=== PATIENT | male | born 1990 | race Caucasian/White ===

== ENCOUNTER 2024-10-16 08:15 | Emergency (ER) | payer BC, SELFPAY ==
[2024-10-16 08:22] VITALS: BP 138/80; PULSE 116; RESP 20; TEMP 37.2; O2SAT 97
--- NOTE | 2024-10-16 08:22 | ED.URI ---
HPI - URI/Sore Throat General Chief Complaint: Upper Respiratory Infection Stated Complaint: Chest Congestion/Headache/Cough Time Seen by Provider: 10/16/24 08:41 Source: patient and RN notes reviewed Mode of arrival: ambulatory Limitations: no limitations History of Present Illness HPI Narrative: 43-year-old male presents with concern for cough, chest congestion, headache, postnasal drainage sweats that started on Tuesday. He reports he has been taking Advil cold and Sinus without relief. MD elicited complaint: cough Related Data Allergies Allergy/AdvReac Type Severity Reaction Status Date / Time No Known Allergies Allergy Unverified 11/25/18 10:11 Review of Systems Review of Systems: CONSTITUTIONAL: Reports malaise, sweats EYES: Denies visual changes, redness, or discharge. ENT: Reports rhinorrhea, congestion, postnasal drainage. Denies sinus pain, otalgia and sore throat. CARDIOVASCULAR: Denies chest pain, palpitations, or edema. RESPIRATORY: Reports cough. Denies dyspnea. GASTROINTESTINAL: Denies abdominal pain, nausea, vomiting, diarrhea SKIN: Denies rash or itching. MUSCULOSKELETAL: Denies myalgia. NEUROLOGIC: Reports headache. All systems reviewed & are unremarkable except as noted in HPI and below PMFSH Comments At time of signature, agree with nursing past medical, surgical, social and family history. There is no relevant family history pertinent to the presenting complaint Exam Narrative: GENERAL: Nontoxic-appearing, well-nourished, and in no acute distress. HEAD: Normocephalic EYES: PERRLA, conjunctivae clear ENT: Nares clear, turbinates edematous and erythematous, clear discharge. Mucous membranes moist. TM pearly rowe with dull light reflex bilaterally; no tragal tenderness. Oropharynx not erythematous without lesions. Tonsils not enlarged and without exudate, no drooling, no hoarseness, no trismus, uvula midline. NECK: Supple. No lymphadenopathy CHEST: Clear to auscultation, breath sounds equal. No wheezing, rhonchi, rales, or stridor. No respiratory distress, speaks in full sentences. HEART: Regular rate and rhythm. No murmur heard. SKIN: Warm, sweaty, no rash. NEURO: Alert and oriented x3. PSYCH: Normal mood and affect Course Course Emergency Course: Patient is aware of diagnosis, understands and agrees to treatment plan. Anticipatory guidance given. Patient agrees to follow-up as directed and is aware of reasons to seek care at the emergency department. Portions of this record may have been created with voice recognition software Level of Care: Express Care Visit Vital Signs Vital signs: Reviewed. MDM - URI/Sore Throat MDM Narrative Medical decision making narrative: Differential diagnosis considered: Fernandez virus, strep pharyngitis, allergic rhinitis, upper respiratory tract infection, sinusitis, rhinosinusitis, nasopharyngitis. viral pharyngitis, otitis media, otitis externa, pneumonia, bronchitis, viral cough syndrome, viral syndrome, and influenza. Exam findings show no acute concerns or changes; patient is non-toxic appearing and is in no distress. Patient is appropriate for outpatient treatment and follow-up. Lab Data Attestation: I reviewed the patient's lab results. Critical Care Time Critical Care Time Critical Care Time: No Discharge Plan Discharge Clinical Impression: Upper respiratory infection Patient Disposition: Home, Self-Care Condition: Stable Instructions: Antibiotic Form Additional Instructions: Your COVID and flu tests are negative -Take strict precautions to prevent the spread of your virus. Be diligent about covering your cough (even when you are alone) and washing your hands frequently. -You may contagious until you have been symptom and/or fever free for 24 hours without fever reducing medicine -Alternate Ibuprofen and Tylenol for pain and fever relief (per package directions) -Some Cough medicines may make you drowsy, do not take it if you have to make important decisions, drive, or work. -Drink plenty of fluid - drink fluid with electrolytes such as Gatorade or other oral re-hydration solution. Avoid caffeine, which can make dehydration worse. -Get plenty of rest to help your body heal. -Use a cool mist humidifier for chest and nasal congestion. -Eat RAW honey or use cough drops to ease throat discomfort -Do not smoke or expose children to secondhand smoke -Wash your hands frequently. -Please follow-up with your primary care doctor in the next 1-2 days if your symptoms do not improve. -If you have any worsening of symptoms or any other concerns please go to the ED immediately. -Please take medications as prescribed and continue taking your home medications as usual. Patient Language: Nepalese Prescriptions: New dextromethorphan-guaifenesin [Mucinex DM] 60-1,200 mg tablet extended release 12 hr 1 tablet PO Q12H Qty: 12 0RF Follow-up/Referrals: PHYSICIAN,WELFARE PROJECT MANAGER [Primary Care Provider] - Stand Alone Forms: Work/School Release IP Time of Disposition: 08:48
--- OUTSIDE RECORDS SUMMARY | 2024-10-16 08:41 | XMS_ITS | Data Portability ---
Author Organization [place] [facility] [facility] Address [address] [facility] [place] [address] Assessment Encounter Date Assessment Date Assessment LastModified by Organization Details LastModified Time 05/13/2023 05/13/2023 Pt was switched to Dovato today he will have labs completed in 6mos in [place] and will have a phone visit. Discussed s e of Dovato his is on PREP and is compliant. Genotype reviewed from 2019 Not available 05/13/2023 17:37:00 Plan of Treatment Reminders Order Date Submit Date Provider Last Modified By Organization Details Last Modified Time Details Appointments ANY 30 2024 01:30P M Nathaniel Franco NP Not available Not available Not available Lab HIV-1 RNA, quantitat quincy, PCR, serum or plasma 2022 023 [place] [facility], [facility] [facility] [address], [address], [place], [address], 06/10/2023 12:12:58 cd4 T-cells, blood 2022 023 [facility], [facility], [address], [place], [address], 05/27/2023 10:08:19 RPR (rapid plasma reagin), serum 2022 023 [facility], [facility], [address], [place], [address], 05/27/2023 10:08:19 chlamydia trachomat is + neisseria gonorrhoe ae + trichomon as vaginalis DNA panel, KELLY+probe , unspecifi ed specimen 2022 023 [facility], [address], [address], [place], [address], 05/27/2023 10:07:47 CMP, serum or plasma 2022 023 [facility], [address], [address], [place], [address], 05/27/2023 10:08:20 HIV 1 RNA reverse transcrip tase and protease and integrase gene mutations detected, sequencin g, plasma 2022 023 [facility], [address] [facility] [address], [place], [address], 06/10/2023 12:12:59 unlisted lab - genosure archive(R ) 2022 023 [facility], [address] [facility] [address], [place], [address], 06/10/2023 12:12:59 HIV-1 RNA, quantitat quincy, PCR, serum or plasma 2022 023 [facility], [facility] [address], [address], [place], [place], [address], 08/30/2023 09:08:27 cd4 T-cells, blood 2022 023 [facility] FAW[facility], [facility], [address], [place], [address], 08/30/2023 22:06:57 RPR (rapid plasma reagin), serum 2022 023 [facility] FAW[facility], [facility], [address], [place], [address], 08/30/2023 22:06:58 chlamydia trachomat is + neisseria gonorrhoe ae + trichomon as vaginalis DNA panel, KELLY+probe , unspecifi ed specimen 2022 023 [facility], [address], [address], [place], [address], 08/30/2023 22:06:56 CMP, serum or plasma 2022 023 [facility], [address] [place], [place] [address]rad[address], [address], [place], [address], 08/30/2023 22:06:57 HIV 1 RNA reverse transcrip tase and protease and integrase gene mutations detected, sequencin g, plasma 2022 023 [facility], [address] [place] [address], [address], 08/30/2023 09:08:27 CMP, serum or plasma 2023 024 [facility], [address] [place], [place] [address], [address], [place], [address], 11/29/2023 19:08:52 lipid panel, serum 2023 024 [facility] CELEST[facility], [address] [place], [place] [address], [address], [place], [address], 11/29/2023 19:08:51 urinalysi s, complete 2023 024 [facility] CELESTIN, [address] [place], [place] [address], [address], [place], [address], 11/29/2023 19:08:54 RPR (rapid plasma reagin), serum 2023 024 [facility] CELEST[facility], [address] [place], [place] [address], [address], [place], [address], 11/29/2023 19:08:54 Mycobacte rium tuberculo sis stimulate d gamma interfero n, qual, blood 2023 024 [facility], [address] [place], [place] [address], [address], [place], [address], 11/29/2023 19:08:50 chlamydia trachomat is + neisseria gonorrhoe ae + trichomon as vaginalis DNA panel, KELLY+probe , unspecifi ed specimen 2023 024 [facility], [address] [place], [place] [address], [address], [place], [address], 11/29/2023 19:08:51 CMP, serum or plasma 2023 024 [facility], [address] [place], [place] [address], [address], [place], [address], 02/02/2024 14:41:21 HIV-1 RNA, quantitat quincy, PCR, serum or plasma 2023 024 [facility], [address] [place], [place] [address], [address], [place], [address], 11/26/2023 21:08:19 cd4 T-cells, blood 2023 024 [facility], [address] [place], [place] [address], [address], [place], [address], 11/29/2023 19:08:53 drug screen, urine 2023 024 [facility]ALD[facility] FAWAD, [address] [place], [place] [address], [address], [place], [address], 11/29/2023 19:08:53 Hepatitis C IgG Ab, qual, serum 2023 024 [facility], [address] [place], [place] [address], [address], [place], [address], 11/29/2023 19:08:50 HIV-1 RNA, quantitat quincy, PCR, serum or plasma 2023 024 [facility], [address] [place], [place] [address], [address], [place], [address], 05/12/2024 21:07:17 cd4 T-cells, blood 2023 024 [facility], [address] [place], [place] [address], [address], [place], [address], 05/14/2024 21:07:40 RPR (rapid plasma reagin), serum 2023 024 [facility], [address] [place] [address], [address], [place], [address], 05/14/2024 21:07:40 chlamydia trachomat is + neisseria gonorrhoe ae + trichomon as vaginalis rRNA panel, KELLY+probe 2023 024 [facility], [address] [place], [place] [address], [address], [place], [address], 05/14/2024 21:07:39 CMP, serum or plasma 2023 024 [facility], [address] [place] [address], [address], [place], [address], 05/14/2024 21:07:39 Referral None recorded. Procedures None recorded. Surgeries None recorded. Imaging None recorded. Medication Orders Dovato 50 mg-300 mg tablet 2022 023 [place] [facility], [address], [place], [address], 05/13/2023 17:36:40 Dovato 50 mg-300 mg tablet 2022 023 [place] [facility], [facility] , [place], [address], 08/26/2023 12:04:29 Dovato 50 mg-300 mg tablet 2023 024 [place] [facility], [facility] , [place], [address], 11/25/2023 10:56:50 Dovato 50 mg-300 mg tablet 2023 024 [facility] [facility], [facility] [facility], [place], [address], 05/11/2024 12:45:06 Patient TargetsNo targets recorded. Patient Instructions Encounter Date Encounter Id Patient Instructions Last Modified By Organization Details Last Modified Time 05/13/2023 [id number] A healthy lifestyle: care instructions Not available 05/13/2023 17:35:28 08/26/2023 [id number] A healthy lifestyle: care instructions Not available 08/26/2023 13:36:58 11/25/2023 [id number] A healthy lifestyle: care instructions Not available 11/25/2023 13:14:10 05/11/2024 [id number] A healthy lifestyle: care instructions Not available 05/11/2024 14:29:59 Reason for Referral None Reported. Results Created Date Observation Date Name Description Value Unit Range Abnormal Flag Note LastModifiedBy Organization Detail LastModifiedTime 01/08/2001/08/2023 RPR, RFX QN RPR/C ONFIR M TP RPR Reacti ve nonrea ctive abnormal Not Available [facility] ([facility]) [address] [facility], [place], [address], 01/10/2023 16:37:00 01/08/20 23 01/08/2023 RPR QN+TP ABS RPR, quant. 1:32 nonrea <1:1 above high normal Not Available [facility] ([facility]) [address] [facility] [place], [address], 01/10/2023 16:37:01 01/08/20 23 01/10/2023 RPR QN+TP ABS treponema pallidum antibodies Reacti ve nonrea ctive abnormal Not Available [facility] ([facility]) [address] [facility] [place], [address], 01/10/2023 16:37:01 05/13/20 23 05/14/2023 COMP. METAB OLIC PANEL (14) glucose 103 mg/dL 70-99 above high normal Not Available [facility] ([facility]) [address] [facility] [place], [address], 05/16/2023 14:10:11 05/13/20 23 05/14/2023 COMP. METAB OLIC PANEL (14) BUN 16 mg/dL 6-20 Not Available [facility] ([facility]) [address] [facility] [place], [address], 05/16/2023 14:10:11 05/13/20 23 05/14/2023 COMP. METAB OLIC PANEL (14) creatinine 1.23 mg/dL 0.76-1 .27 Not Available [facility] ([facility]) [address] [facility] [place], [address], 05/16/2023 14:10:11 05/13/20 23 05/14/2023 COMP. METAB OLIC PANEL (14) eGFR 81 mL/mi n/1.7 3 >59 Not Available [facility] ([facility]) [address] [facility] [place], [address], 05/16/2023 14:10:11 05/13/20 23 05/14/2023 COMP. METAB OLIC PANEL (14) BUN/creatini ne ratio 13 9-20 Not Available [facility] ([facility]) [address] [place], [address], 05/16/2023 14:10:11 05/13/20 23 05/14/2023 COMP. METAB OLIC PANEL (14) sodium 139 mmol/ L 134-14 4 Not Available [facility] ([facility]) [address] [facility], [place], [address], 05/16/2023 14:10:11 05/13/20 23 05/14/2023 COMP. METAB OLIC PANEL (14) potassium 4.4 mmol/ L 3.5-5. 2 Not Available [facility] ([facility]) [address] [facility], [place], [address], 05/16/2023 14:10:11 05/13/20 23 05/14/2023 COMP. METAB OLIC PANEL (14) chloride 103 mmol/ L 96-106 Not Available [facility] ([facility]) [address] [facility], [place], [address], 05/16/2023 14:10:11 05/13/20 23 05/14/2023 COMP. METAB OLIC PANEL (14) carbon dioxide, total 23 mmol/ L 20-29 Not Available [facility] ([facility]) [address] [facility], [place], [address], 05/16/2023 14:10:11 05/13/20 23 05/14/2023 COMP. METAB OLIC PANEL (14) calcium 9.5 mg/dL 8.7-10 .2 Not Available [facility] ([facility]) [address] [facility], [place], [address], 05/16/2023 14:10:11 05/13/20 23 05/14/2023 COMP. METAB OLIC PANEL (14) protein, total 7.1 g/dL 6.0-8. 5 Not Available [facility] ([facility]) [address] [facility], [place], [address], 05/16/2023 14:10:11 05/13/20 23 05/14/2023 COMP. METAB OLIC PANEL (14) albumin 4.6 g/dL 4.3-5. 2 Not Available [facility] ([facility]) [address] [place], [address], 05/16/2023 14:10:11 05/13/20 23 05/14/2023 COMP. METAB OLIC PANEL (14) globulin, total 2.5 g/dL 1.5-4. 5 Not Available [facility] ([facility]) [address] [place], [address], 05/16/2023 14:10:11 05/13/20 23 05/14/2023 COMP. METAB OLIC PANEL (14) A/G ratio 1.8 1.2-2. 2 Not Available [facility] ([facility]) [address] [place], [address], 05/16/2023 14:10:11 05/13/20 23 05/14/2023 COMP. METAB OLIC PANEL (14) bilirubin, total 0.2 mg/dL 0.0-1. 2 Not Available [facility] ([facility]) [address] [place], [address], 05/16/2023 14:10:11 05/13/20 23 05/14/2023 COMP. METAB OLIC PANEL (14) alkaline phosphatase 50 IU/L 44-121 Not Available [facility] ([facility]) [address] [place], [address], 05/16/2023 14:10:11 05/13/20 23 05/14/2023 COMP. METAB OLIC PANEL (14) AST (SGOT) 21 IU/L 0-40 Not Available [facility] ([facility]) [address] [place], [address], 05/16/2023 14:10:11 05/13/20 23 05/14/2023 COMP. METAB OLIC PANEL (14) ALT (SGPT) 21 IU/L 0-44 Not Available [facility] ([facility]) [address] [facility], [place], [address], 05/16/2023 14:10:11 05/13/2005/13/2023 HELPE R T-LYM PH-CD 4 WBC 5.8 x10e3 /uL 3.4-10 .8 Not Available [facility] ([facility]) [address] [facility], [place], [address], 05/16/2023 14:10:12 05/13/2005/13/2023 HELPE R T-LYM PH-CD 4 RBC 4.67 x10e6 /uL 4.14-5 .80 Not Available [facility] ([facility]) [address] [facility], [place], [address], 05/16/2023 14:10:12 05/13/2005/13/2023 HELPE R T-LYM PH-CD 4 hemoglobin 14.1 g/dL 13.0-1 7.7 Not Available [facility] ([facility]) [address] [facility], [place], [address], 05/16/2023 14:10:12 05/13/2005/13/2023 HELPE R T-LYM PH-CD 4 hematocrit 41.7 % 37.5-5 1.0 Not Available [facility] ([facility]) [address] [facility], [place], [address], 05/16/2023 14:10:12 05/13/2005/13/2023 HELPE R T-LYM PH-CD 4 MCV 89 fL 79-97 Not Available [facility] ([facility]) [address] [facility], [place], [address], 05/16/2023 14:10:12 05/13/20 23 05/13/2023 HELPE R T-LYM PH-CD 4 MCH 30.2 pg 26.6-3 3.0 Not Available [facility] ([facility]) [address], [place], [address], 05/16/2023 14:10:12 05/13/20 23 05/13/2023 HELPE R T-LYM PH-CD 4 MCHC 33.8 g/dL 31.5-3 5.7 Not Available [facility] ([facility]) [address] [facility], [place], [address], 05/16/2023 14:10:12 05/13/20 23 05/13/2023 HELPE R T-LYM PH-CD 4 RDW 12.4 % 11.6-1 5.4 Not Available [facility] ([facility]) [address] [facility], [place], [address], 05/16/2023 14:10:12 05/13/20 23 05/13/2023 HELPE R T-LYM PH-CD 4 platelets 261 x10e3 /uL 150-45 0 Not Available [facility] ([facility]) [address] [facility], [place], [address], 05/16/2023 14:10:12 05/13/2005/13/2023 HELPE R T-LYM PH-CD 4 neutrophils 58 % notest ab. Not Available [facility] ([facility]) [address] [facility], [place], [address], 05/16/2023 14:10:12 05/13/20 23 05/13/2023 HELPE R T-LYM PH-CD 4 lymphs 25 % notest ab. Not Available [facility] ([facility]) [address] [facility], [place], [address], 05/16/2023 14:10:12 05/13/20 23 05/13/2023 HELPE R T-LYM PH-CD 4 monocytes 10 % notest ab. Not Available [facility] ([facility]) [address] [facility], [place], [address], 05/16/2023 14:10:12 05/13/20 23 05/13/2023 HELPE R T-LYM PH-CD 4 eos 5 % notest ab. Not Available [facility] ([facility]) [address] [facility], [place], [address], 05/16/2023 14:10:12 05/13/20 23 05/13/2023 HELPE R T-LYM PH-CD 4 basos 1 % notest ab. Not Available [facility] ([facility]) [address] [facility], [place], [address], 05/16/2023 14:10:12 05/13/2005/13/2023 HELPE R T-LYM PH-CD 4 neutrophils (absolute) 3.4 x10e3 /uL 1.4-7. 0 Not Available [facility] ([facility]) [address] [place], [address], 05/16/2023 14:10:12 05/13/2005/13/2023 HELPE R T-LYM PH-CD 4 lymphs (absolute) 1.4 x10e3 /uL 0.7-3. 1 Not Available [facility] ([facility]) [address] [place], [address], 05/16/2023 14:10:12 05/13/20 23 05/13/2023 HELPE R T-LYM PH-CD 4 monocytes(ab solute) 0.6 x10e3 /uL 0.1-0. 9 Not Available [facility] ([facility]) [address] [facility], [place], [address], 05/16/2023 14:10:12 05/13/2005/13/2023 HELPE R T-LYM PH-CD 4 eos (absolute) 0.3 x10e3 /uL 0.0-0. 4 Not Available [facility] ([facility]) [address] [place], [address], 05/16/2023 14:10:12 05/13/20 23 05/13/2023 HELPE R T-LYM PH-CD 4 baso (absolute) 0.1 x10e3 /uL 0.0-0. 2 Not Available [facility] ([facility]) [address] [facility], [place], [address], 05/16/2023 14:10:12 05/13/20 23 05/13/2023 HELPE R T-LYM PH-CD 4 immature granulocytes 1 % notest ab. Not Available [facility] ([facility]) [address] [facility] [place], [address], 05/16/2023 14:10:12 05/13/20 23 05/13/2023 HELPE R T-LYM PH-CD 4 immature grans (abs) 0.0 x10e3 /uL 0.0-0. 1 Not Available [facility] ([facility]) [address] [facility], [place], [address], 05/16/2023 14:10:12 05/13/2005/16/2023 HELPE R T-LYM PH-CD 4 absolute cd 4 helper 624 /uL 359-15 19 Not Available [facility] ([facility]) [address] [facility] [place], [address], 05/16/2023 14:10:12 05/13/20 23 05/16/2023 HELPE R T-LYM PH-CD 4 % cd 4 pos. lymph. 44.6 % 30.8-5 8.5 Not Available [facility] ([facility]) [address] [facility] [place], [address], 05/16/2023 14:10:12 05/13/20 23 05/14/2023 RPR, RFX QN RPR/C ONFIR M TP RPR Reacti ve nonrea ctive abnormal Not Available [facility] ([facility]) [address] [facility] [place], [address], 05/16/2023 14:10:13 05/13/20 23 05/14/2023 RNA, REAL TIME PCR (NON- GRAPH ) HIV-1 RNA by PCR <20 copie s/mL HIV-1 RNA detec jeannine The repor table range for this assay is 20 to 10,00 0,000 copie s HIV-1 RNA/m L. Not Available [facility] ([facility]) [address] [facility], [place], [address], 06/10/2023 12:12:58 05/13/20 23 05/14/2023 RNA, REAL TIME PCR (NON- GRAPH ) log10 HIV-1 RNA TNP log10 copy/ mL Unabl e to calcu late resul t since non-n umeri c resul t obtai lyudmila for compo nent test. Not Available [facility] ([facility]) [address] [facility], [place], [address], 06/10/2023 12:12:58 05/13/2005/16/2023 GENOS URE PRIME (R) pdf Not applic able Not Available [facility] ([facility]) [address] [facility], [place], [address], 06/10/2023 12:12:59 05/13/2005/16/2023 GENOS URE PRIME (R) HIV genosure prime(R) TNP Test not perfo rmed. We are unabl e to deter mine the genot ype and/o r pheno type of this sampl e due to insuf ficie nt viral copy numbe r. Sampl es with low viral loads will often fail PCR ampli ficat ion. Not Available [facility] ([facility]) [address] [facility], [place], [address], 06/10/2023 12:12:59 05/13/2005/16/2023 GENOS URE PRIME (R) HIV genosure prime(R) Commen t Seque ncing not perfo rmed due to low viral load Not Available [facility] ([facility]) [address] [place], [address], 06/10/2023 12:12:59 05/13/20 23 06/10/2023 GENOS URE ARCHI VE(R) pdf . Not Available [facility] ([facility]) [address] [facility], [place], [address], 06/10/2023 12:12:59 05/13/20 23 06/10/2023 GENOS URE ARCHI VE(R) HIV genosure archive Commen t Carlton gene ampli con adequ ate for seque ncing Not Available [facility] ([facility]) [address] [facility], [place], [address], 06/10/2023 12:12:59 05/13/20 23 06/10/2023 GENOS URE ARCHI VE(R) HIV genosure archive Commen t The HIV-1 GenoS ure Archi ve(R) for this speci men has been compl eted. HIV-1 Subty pe: B Drug Genot ypic Gener ic Name Brand Name Asses sment Comme nts ----- ----- ----- ----- ----- - ----- ----- ----- --- NRTI [place] vir Ziage n Sensi tive Dede* : V118I Didan osine Videx Sensi tive Dede* : None Emtri citab ine Emtri va Sensi tive Dede* : V118I Lamiv udine Epivi r Sensi tive Dede* : V118I Stavu dine Zerit Sensi tive Dede* : V118I Tenof ovir Virea d Sensi tive Dede* : None Zidov udine Retro vir Sensi tive Dede* : V118I NNRTI Dorav irine Pifel tro Resis tant Dede* : I135T , Y188L , V245E Efavi nelda Susti va Resis tant Dede* : Y188L Etrav irine Intel ence Sensi tive Dede* : Y188L Nevir apine Viram une Resis tant Dede* : Y188L Rilpi virin e Edura nt Resis tant Dede* : Y188L INI Bicte gravi r Bicte gravi r Sensi tive Dede* : None Dolut egrav ir Tivic ay Sensi tive Dede* : None Elvit egrav ir Vitek ta Sensi tive Dede* : None Ralte gravi r Isent ress Sensi tive Dede* : None PI Ataza navir /r Reyat az / r Sensi tive Dede* : E35D, A71V Darun avir/ r Prezi sta / r Sensi tive Dede* : None Fosam prena vir/r Lexiv a / r Sensi tive Dede* : E35D Indin avir/ r Crixi van / r Sensi tive Dede* : A71V Lopin avir Kalet ra Sensi tive Dede* : A71V Nelfi navir Virac ept Sensi tive Dede* : E35D, A71V Riton avir Norvi r Sensi tive Dede* : E35D, A71V Saqui navir /r Invir ase / r Sensi tive Dede* : E35D, A71V Tipra navir /r Aptiv us / r Sensi tive Dede* : E35D, L63A/ T, A71V *Dede = Resis tance Assoc iated Mutat ions obser joelle [employer] Obser joelle: RT: E6K, K20R, I50I/ V, S68S/ N, Q102K , V118I , K122E , I135T , C162A , R172K , Y188L , T200A , R211K , F214L , V245E , S251I , R284K , E297K , I329L , G333E , K358R , T377Q , K390R , A400S IN: E11D, A23V, V31I, K42R, V72I, V88V/ I, K111T , V113I , S119T , T125A , V126L , V151I , V201I , V234L , S255S /R RI: E35D, P39Q, R41K, L63A/ T, A71V, I72V, I93L Asses sment of drug susce ptibi lity is based upon detec jeannine mutat ions and inter prete d using an advan samantha propr ietar y algor ithm (vers ion 18). Not Available [facility] ([facility]) [address] [facility], [place], [address], 06/10/2023 12:12:59 05/13/2006/10/2023 GENOS URE ARCHI VE(R) HIV genosure archive interp Commen t Inter preta tion algor ithms for riton avir- boost ed prote ase inhib itors appro priat e for the follo wing dosag es: AMP/r 600mg /100m g BID; ATV/r 300mg /100m g QD; IDV/r 800mg /200m g BID; LPV/r 400mg /100m g BID; SQV/r 1000m g/100 mg BID; TPV/r 500mg /200m g BID; and DRV/r 600mg /100m g BID. Mixtu res are indic ated by amino acids separ ated by a slash . For more infor aurelia lewis on inter preti ng this repor t, pleas e visit [employer] or call [facility] ce at [phone] betwe en the hours of 6:30a m to 5:00p m PT Monda y throu gh Marli y. GenoS ure Archi ve is a DNA seque ncing assay that uses next- gener ation seque ncing to eva ze the prote ase (navarrete o acids 1-99) , rever se trans cript ase (navarrete o acids 1-400 ) and integ rase (navarrete o acids 1-288 ) codin g regio ns deriv ed from HIV-1 cell assoc iated DNA. Subty pe is deter mined using the prote ase and rever se trans cript ase seque nce infor aurelia n. This test was devel oped and its perfo rmanc e braulio cteri stics deter mined by [employer]. It has not been clear ed or appro joelle by the Food and Drug Admin istra tion. [employer] can[employer] is a subsi diary of [employer], using the brand [employer] r[employer]. The resul ts shoul d not be used as the sole crite kristin for patie nt manag ement . This docum ent conta ins priva te and confi denti al healt h infor matio n prote cted by state and pilo al law. If you have recei joelle this docum ent in error , pleas e call [phone] . Not Available [facility] ([facility]) [address] [place], [address], 06/10/2023 12:12:59 05/13/2005/14/2023 RPR QN+TP ABS RPR, quant. 1:32 titer nonrea <1:1 above high normal Not Available [facility] ([facility]) [address] [place], [address], 05/16/2023 14:10:14 05/13/2005/16/2023 RPR QN+TP ABS treponema pallidum antibodies Reacti ve nonrea ctive abnormal Not Available [facility] ([facility]) [address] [place], [address], 05/16/2023 14:10:14 05/13/20 23 05/13/2023 UNABL E TO VOID unable to void Commen t Patie nt unabl e to void. Urine to be colle cted at a later date. Not Available [facility] ([facility]) [address] [place], [address], 05/16/2023 14:10:13 06/22/20 23 06/23/2023 COMP. METAB OLIC PANEL (14) glucose 97 mg/dL 70-99 Not Available [facility] ([facility]) [address] [place], [address], 06/23/2023 09:22:54 06/22/20 23 06/23/2023 COMP. METAB OLIC PANEL (14) BUN 19 mg/dL 6-20 Not Available [facility] ([facility]) [address] [facility] [place], [address], 06/23/2023 09:22:54 06/22/20 23 06/23/2023 COMP. METAB OLIC PANEL (14) creatinine 1.67 mg/dL 0.76-1 .27 above high normal Not Available [facility] ([facility]) [address] [facility] [place], [address], 06/23/2023 09:22:54 06/22/20 23 06/23/2023 COMP. METAB OLIC PANEL (14) eGFR 56 mL/mi n/1.7 3 >59 below low normal Not Available [facility] ([facility]) [address] [facility] [place], [address], 06/23/2023 09:22:54 06/22/20 23 06/23/2023 COMP. METAB OLIC PANEL (14) BUN/creatini ne ratio 11 9-20 Not Available [facility] ([facility]) [address] [facility] [place], [address], 06/23/2023 09:22:54 06/22/20 23 06/23/2023 COMP. METAB OLIC PANEL (14) sodium 140 mmol/ L 134-14 4 Not Available [facility] ([facility]) [address] [facility] [place], [address], 06/23/2023 09:22:54 06/22/20 23 06/23/2023 COMP. METAB OLIC PANEL (14) potassium 3.9 mmol/ L 3.5-5. 2 Not Available [facility] ([facility]) [address] [facility] [place], [address], 06/23/2023 09:22:54 06/22/20 23 06/23/2023 COMP. METAB OLIC PANEL (14) chloride 100 mmol/ L 96-106 Not Available [facility] ([facility]) [address] [facility] [place], [address], 06/23/2023 09:22:54 06/22/20 23 06/23/2023 COMP. METAB OLIC PANEL (14) carbon dioxide, total 21 mmol/ L 20-29 Not Available [facility] ([facility]) [address] [facility] [place], [address], 06/23/2023 09:22:54 06/22/2006/23/2023 COMP. METAB OLIC PANEL (14) calcium 9.8 mg/dL 8.7-10 .2 Not Available [facility] ([facility]) [address] [facility] [place], [address], 06/23/2023 09:22:54 06/22/2006/23/2023 COMP. METAB OLIC PANEL (14) protein, total 7.7 g/dL 6.0-8. 5 Not Available [facility] ([facility]) [address] [facility] [place], [address], 06/23/2023 09:22:54 06/22/2006/23/2023 COMP. METAB OLIC PANEL (14) albumin 5.4 g/dL 4.3-5. 2 above high normal Not Available [facility] ([facility]) [address] [facility] [place], [address], 06/23/2023 09:22:54 06/22/2006/23/2023 COMP. METAB OLIC PANEL (14) globulin, total 2.3 g/dL 1.5-4. 5 Not Available [facility] ([facility]) [address] [facility] [place], [address], 06/23/2023 09:22:54 06/22/2006/23/2023 COMP. METAB OLIC PANEL (14) A/G ratio 2.3 1.2-2. 2 above high normal Not Available [facility] ([facility]) [address] [place], [address], 06/23/2023 09:22:54 06/22/20 23 06/23/2023 COMP. METAB OLIC PANEL (14) bilirubin, total 0.8 mg/dL 0.0-1. 2 Not Available [facility] ([facility]) [address] [place], [address], 06/23/2023 09:22:54 06/22/2006/23/2023 COMP. METAB OLIC PANEL (14) alkaline phosphatase 57 IU/L 44-121 Not Available [facility] ([facility]) [address] [place], [address], 06/23/2023 09:22:54 06/22/20 23 06/23/2023 COMP. METAB OLIC PANEL (14) AST (SGOT) 31 IU/L 0-40 Not Available [facility] ([facility]) [address] [place], [address], 06/23/2023 09:22:54 06/22/20 23 06/23/2023 COMP. METAB OLIC PANEL (14) ALT (SGPT) 19 IU/L 0-44 Not Available [facility] ([facility]) [address] [place], [address], 06/23/2023 09:22:54 06/22/20 23 06/23/2023 RNA, REAL TIME PCR (NON- GRAPH ) HIV-1 RNA by PCR <20 copie s/mL HIV-1 RNA not detec jeannine The repor table range for this assay is 20 to 10,00 0,000 copie s HIV-1 RNA/m L. Not Available [facility] ([facility]) [address] [place], [address], 06/24/2023 06:15:24 06/22/2006/23/2023 RNA, REAL TIME PCR (NON- GRAPH ) log10 HIV-1 RNA TNP log10 copy/ mL Unabl e to calcu late resul t since non-n umeri c resul t obtai lyudmila for compo nent test. Not Available [facility] ([facility]) [address] [facility] [place], [address], 06/24/2023 06:15:24 06/22/2006/24/2023 CT, NG, TRICH VAG BY KELLY chlamydia by KELLY Negati ve negati ve Not Available [facility] ([facility]) [address] [place], [address], 06/24/2023 07:12:53 06/22/2006/24/2023 CT, NG, TRICH VAG BY KELLY gonococcus by KELLY Negati ve negati ve Not Available [facility] ([facility]) [address] [place], [address], 06/24/2023 07:12:53 06/22/2006/24/2023 CT, NG, TRICH VAG BY KELLY trich vag by KELLY Negati ve negati ve Not Available [facility] ([facility]) [address] [place], [address], 06/24/2023 07:12:53 06/22/2006/23/2023 HELPE R T-LYM PH-CD 4 absolute cd 4 helper 864 /uL 359-15 19 Not Available [facility] ([facility]) [address] [place], [address], 06/24/2023 07:12:54 06/22/2006/23/2023 HELPE R T-LYM PH-CD 4 % cd 4 pos. lymph. 43.2 % 30.8-5 8.5 Not Available [facility] ([facility]) [address] [place], [address], 06/24/2023 07:12:54 06/22/2006/23/2023 HELPE R T-LYM PH-CD 4 WBC 8.7 x10e3 /uL 3.4-10 .8 Not Available [facility] ([facility]) [address] [facility] [place], [address], 06/24/2023 07:12:54 06/22/2006/23/2023 HELPE R T-LYM PH-CD 4 RBC 4.64 x10e6 /uL 4.14-5 .80 Not Available [facility] ([facility]) [address] [facility] [place], [address], 06/24/2023 07:12:54 06/22/2006/23/2023 HELPE R T-LYM PH-CD 4 hemoglobin 14.4 g/dL 13.0-1 7.7 Not Available [facility] ([facility]) [address] [facility] [place], [address], 06/24/2023 07:12:54 06/22/2006/23/2023 HELPE R T-LYM PH-CD 4 hematocrit 41.0 % 37.5-5 1.0 Not Available [facility] ([facility]) [address] [facility] [place], [address], 06/24/2023 07:12:54 06/22/2006/23/2023 HELPE R T-LYM PH-CD 4 MCV 88 fL 79-97 Not Available [facility] ([facility]) [address] [facility] [place], [address], 06/24/2023 07:12:54 06/22/2006/23/2023 HELPE R T-LYM PH-CD 4 MCH 31.0 pg 26.6-3 3.0 Not Available [facility] ([facility]) [address] [facility] [place], [address], 06/24/2023 07:12:54 06/22/2006/23/2023 HELPE R T-LYM PH-CD 4 MCHC 35.1 g/dL 31.5-3 5.7 Not Available [facility] ([facility]) [address] [facility] [place], [address], 06/24/2023 07:12:54 06/22/2006/23/2023 HELPE R T-LYM PH-CD 4 RDW 14.0 % 11.6-1 5.4 Not Available [facility] ([facility]) [address] [facility] [place], [address], 06/24/2023 07:12:54 06/22/2006/23/2023 HELPE R T-LYM PH-CD 4 platelets 281 x10e3 /uL 150-45 0 Not Available [facility] ([facility]) [address] [facility] [place], [address], 06/24/2023 07:12:54 06/22/2006/23/2023 HELPE R T-LYM PH-CD 4 neutrophils 68 % notest ab. Not Available [facility] ([facility]) [address] [facility] [place], [address], 06/24/2023 07:12:54 06/22/2006/23/2023 HELPE R T-LYM PH-CD 4 lymphs 22 % notest ab. Not Available [facility] ([facility]) [address] [facility] [place], [address], 06/24/2023 07:12:54 06/22/2006/23/2023 HELPE R T-LYM PH-CD 4 monocytes 8 % notest ab. Not Available [facility] ([facility]) [address] [facility] [place], [address], 06/24/2023 07:12:54 06/22/2006/23/2023 HELPE R T-LYM PH-CD 4 eos 1 % notest ab. Not Available [facility] ([facility]) [address] [facility] [place], [address], 06/24/2023 07:12:54 06/22/2006/23/2023 HELPE R T-LYM PH-CD 4 basos 1 % notest ab. Not Available [facility] ([facility]) [address] [facility] [place], [address], 06/24/2023 07:12:54 06/22/2006/23/2023 HELPE R T-LYM PH-CD 4 neutrophils (absolute) 5.9 x10e3 /uL 1.4-7. 0 Not Available [facility] ([facility]) [address] [facility] [place], [address], 06/24/2023 07:12:54 06/22/2006/23/2023 HELPE R T-LYM PH-CD 4 lymphs (absolute) 2.0 x10e3 /uL 0.7-3. 1 Not Available [facility] ([facility]) [address] [facility] [place], [address], 06/24/2023 07:12:54 06/22/20 23 06/23/2023 HELPE R T-LYM PH-CD 4 monocytes(ab solute) 0.7 x10e3 /uL 0.1-0. 9 Not Available [facility] ([facility]) [address] [facility] [place], [address], 06/24/2023 07:12:54 06/22/20 23 06/23/2023 HELPE R T-LYM PH-CD 4 eos (absolute) 0.1 x10e3 /uL 0.0-0. 4 Not Available [facility] ([facility]) [address] [facility] [place], [address], 06/24/2023 07:12:54 06/22/20 23 06/23/2023 HELPE R T-LYM PH-CD 4 baso (absolute) 0.1 x10e3 /uL 0.0-0. 2 Not Available [facility] ([facility]) [address] [facility] [place], [address], 06/24/2023 07:12:54 06/22/2006/23/2023 HELPE R T-LYM PH-CD 4 immature granulocytes 0 % notest ab. Not Available [facility] ([facility]) [address] [facility] [place], [address], 06/24/2023 07:12:54 06/22/2006/23/2023 HELPE R T-LYM PH-CD 4 immature grans (abs) 0.0 x10e3 /uL 0.0-0. 1 Not Available [facility] ([facility]) [address] [facility], [place], [address], 06/24/2023 07:12:54 06/22/2006/23/2023 RPR, RFX QN RPR/C ONFIR M TP RPR Reacti ve nonrea ctive abnormal Not Available [facility] ([facility]) [address] [facility] [place], [address], 06/24/2023 07:12:55 06/22/2006/23/2023 RPR QN+TP ABS RPR, quant. 1:32 titer nonrea <1:1 above high normal Not Available [facility] ([facility]) [address] [facility] [place], [address], 06/24/2023 07:12:55 06/22/2006/23/2023 RPR QN+TP ABS treponema pallidum antibodies Reacti ve nonrea ctive abnormal Not Available [facility] ([facility]) [address] [facility] [place], [address], 06/24/2023 07:12:55 08/26/20 23 08/27/2023 RNA, REAL TIME PCR (NON- GRAPH ) HIV-1 RNA by PCR <20 copie s/mL HIV-1 RNA not detec jeannine The repor table range for this assay is 20 to 10,00 0,000 copie s HIV-1 RNA/m L. Not Available [facility] ([facility]) [address] [facility], [place], [address], 08/30/2023 09:08:27 08/26/20 23 08/27/2023 RNA, REAL TIME PCR (NON- GRAPH ) log10 HIV-1 RNA TNP log10 copy/ mL Unabl e to calcu late resul t since non-n umeri c resul t obtai lyudmila for compo nent test. Not Available [facility] ([facility]) [address] [facility] [place], [address], 08/30/2023 09:08:27 08/26/2008/30/2023 GENOS URE PRIME (R) pdf Not applic able Not Available [facility] ([facility]) [address] [facility] [place], [address], 08/30/2023 09:08:27 08/26/2008/30/2023 GENOS URE PRIME (R) HIV genosure prime(R) TNP Test not perfo rmed. We are unabl e to deter mine the genot ype and/o r pheno type of this sampl e due to insuf ficie nt viral copy numbe r. Sampl es with low viral loads will often fail PCR ampli ficat ion. Not Available [facility] ([facility]) [address] [facility], [place], [address], 08/30/2023 09:08:27 08/26/2008/30/2023 GENOS URE PRIME (R) HIV genosure prime(R) Commen t Seque ncing not perfo rmed due to low viral load Not Available [facility] ([facility]) [address] [place], [address], 08/30/2023 09:08:27 08/26/2008/30/2023 CT, NG, TRICH VAG BY KELLY chlamydia by KELLY Negati ve negati ve Not Available [facility] ([facility]) [address] [place], [address], 08/30/2023 22:06:56 08/26/20 23 08/30/2023 CT, NG, TRICH VAG BY KELLY gonococcus by KELLY Negati ve negati ve Not Available [facility] ([facility]) [address] [place], [address], 08/30/2023 22:06:56 08/26/20 23 08/30/2023 CT, NG, TRICH VAG BY KELLY trich vag by KELLY Negati ve negati ve Not Available [facility] ([facility]) [address] [place], [address], 08/30/2023 22:06:56 08/26/20 23 08/27/2023 COMP. METAB OLIC PANEL (14) glucose 71 mg/dL 70-99 Not Available [facility] ([facility]) [address] [place], [address], 08/30/2023 22:06:57 08/26/20 23 08/27/2023 COMP. METAB OLIC PANEL (14) BUN 20 mg/dL 6-20 Not Available [facility] ([facility]) [address] [place], [address], 08/30/2023 22:06:57 08/26/20 23 08/27/2023 COMP. METAB OLIC PANEL (14) creatinine 1.39 mg/dL 0.76-1 .27 above high normal Not Available [facility] ([facility]) [address] [place], [address], 08/30/2023 22:06:57 08/26/20 23 08/27/2023 COMP. METAB OLIC PANEL (14) eGFR 70 mL/mi n/1.7 3 >59 Not Available [facility] ([facility]) [address] [place], [address], 08/30/2023 22:06:57 08/26/20 23 08/27/2023 COMP. METAB OLIC PANEL (14) BUN/creatini ne ratio 14 9-20 Not Available [facility] ([facility]) [address] [place], [address], 08/30/2023 22:06:57 08/26/20 23 08/27/2023 COMP. METAB OLIC PANEL (14) sodium 139 mmol/ L 134-14 4 Not Available [facility] ([facility]) [address] [facility] [place], [address], 08/30/2023 22:06:57 08/26/20 23 08/27/2023 COMP. METAB OLIC PANEL (14) potassium 4.3 mmol/ L 3.5-5. 2 Not Available [facility] ([facility]) [address] [facility] [place], [address], 08/30/2023 22:06:57 08/26/20 23 08/27/2023 COMP. METAB OLIC PANEL (14) chloride 102 mmol/ L 96-106 Not Available [facility] ([facility]) [address] [facility] [place], [address], 08/30/2023 22:06:57 08/26/20 23 08/27/2023 COMP. METAB OLIC PANEL (14) carbon dioxide, total 23 mmol/ L 20-29 Not Available [facility] ([facility]) [address] [facility] [place], [address], 08/30/2023 22:06:57 08/26/20 23 08/27/2023 COMP. METAB OLIC PANEL (14) calcium 9.5 mg/dL 8.7-10 .2 Not Available [facility] ([facility]) [address] [facility] [place], [address], 08/30/2023 22:06:57 08/26/20 23 08/27/2023 COMP. METAB OLIC PANEL (14) protein, total 7.4 g/dL 6.0-8. 5 Not Available [facility] ([facility]) [address] [facility] [place], [address], 08/30/2023 22:06:57 08/26/20 23 08/27/2023 COMP. METAB OLIC PANEL (14) albumin 4.7 g/dL 4.3-5. 2 Not Available [facility] ([facility]) [address] [facility] [place], [address], 08/30/2023 22:06:57 08/26/20 23 08/27/2023 COMP. METAB OLIC PANEL (14) globulin, total 2.7 g/dL 1.5-4. 5 Not Available [facility] ([facility]) [address] [facility] [place], [address], 08/30/2023 22:06:57 08/26/20 23 08/27/2023 COMP. METAB OLIC PANEL (14) A/G ratio 1.7 1.2-2. 2 Not Available [facility] ([facility]) [address] [facility] [place], [address], 08/30/2023 22:06:57 08/26/20 23 08/27/2023 COMP. METAB OLIC PANEL (14) bilirubin, total 0.5 mg/dL 0.0-1. 2 Not Available [facility] ([facility]) [address] [facility], [place], [address], 08/30/2023 22:06:57 08/26/20 23 08/27/2023 COMP. METAB OLIC PANEL (14) alkaline phosphatase 52 IU/L 44-121 Not Available [facility] ([facility]) [address] [facility] [place], [address], 08/30/2023 22:06:57 08/26/20 23 08/27/2023 COMP. METAB OLIC PANEL (14) AST (SGOT) 28 IU/L 0-40 Not Available [facility] ([facility]) [address] [facility] [place], [address], 08/30/2023 22:06:57 08/26/20 23 08/27/2023 COMP. METAB OLIC PANEL (14) ALT (SGPT) 23 IU/L 0-44 Not Available [facility] ([facility]) [address] [facility] [place], [address], 08/30/2023 22:06:57 08/26/20 23 08/27/2023 HELPE R T-LYM PH-CD 4 absolute cd 4 helper 644 /uL 359-15 19 Not Available [facility] ([facility]) [address] [facility] [place], [address], 08/30/2023 22:06:57 08/26/20 23 08/27/2023 HELPE R T-LYM PH-CD 4 % cd 4 pos. lymph. 46.0 % 30.8-5 8.5 Not Available [facility] ([facility]) [address] [facility] [place], [address], 08/30/2023 22:06:57 08/26/20 23 08/27/2023 HELPE R T-LYM PH-CD 4 WBC 4.3 x10e3 /uL 3.4-10 .8 Not Available [facility] ([facility]) [address] [facility] [place], [address], 08/30/2023 22:06:57 08/26/20 23 08/27/2023 HELPE R T-LYM PH-CD 4 RBC 4.61 x10e6 /uL 4.14-5 .80 Not Available [facility] ([facility]) [address] [facility] [place], [address], 08/30/2023 22:06:57 08/26/20 23 08/27/2023 HELPE R T-LYM PH-CD 4 hemoglobin 14.9 g/dL 13.0-1 7.7 Not Available [facility] ([facility]) [address] [facility] [place], [address], 08/30/2023 22:06:57 08/26/20 23 08/27/2023 HELPE R T-LYM PH-CD 4 hematocrit 43.0 % 37.5-5 1.0 Not Available [facility] ([facility]) [address] [facility] [place], [address], 08/30/2023 22:06:57 08/26/20 23 08/27/2023 HELPE R T-LYM PH-CD 4 MCV 93 fL 79-97 Not Available [facility] ([facility]) [address] [facility] [place], [address], 08/30/2023 22:06:57 08/26/20 23 08/27/2023 HELPE R T-LYM PH-CD 4 MCH 32.3 pg 26.6-3 3.0 Not Available [facility] ([facility]) [address] [facility] [place], [address], 08/30/2023 22:06:57 08/26/20 23 08/27/2023 HELPE R T-LYM PH-CD 4 MCHC 34.7 g/dL 31.5-3 5.7 Not Available [facility] ([facility]) [address] [facility] [place], [address], 08/30/2023 22:06:57 08/26/20 23 08/27/2023 HELPE R T-LYM PH-CD 4 RDW 13.1 % 11.6-1 5.4 Not Available [facility] ([facility]) [address] [place], [address], 08/30/2023 22:06:57 08/26/20 23 08/27/2023 HELPE R T-LYM PH-CD 4 platelets 265 x10e3 /uL 150-45 0 Not Available [facility] ([facility]) [address] [facility] [place], [address], 08/30/2023 22:06:57 08/26/2008/27/2023 HELPE R T-LYM PH-CD 4 neutrophils 53 % notest ab. Not Available [facility] ([facility]) [address] [facility] [place], [address], 08/30/2023 22:06:57 08/26/2008/27/2023 HELPE R T-LYM PH-CD 4 lymphs 33 % notest ab. Not Available [facility] ([facility]) [address] [facility] [place], [address], 08/30/2023 22:06:57 08/26/2008/27/2023 HELPE R T-LYM PH-CD 4 monocytes 9 % notest ab. Not Available [facility] ([facility]) [address] [facility] [place], [address], 08/30/2023 22:06:57 08/26/2008/27/2023 HELPE R T-LYM PH-CD 4 eos 4 % notest ab. Not Available [facility] ([facility]) [address] [facility] [place], [address], 08/30/2023 22:06:57 08/26/2008/27/2023 HELPE R T-LYM PH-CD 4 basos 1 % notest ab. Not Available [facility] ([facility]) [address] [facility] [place], [address], 08/30/2023 22:06:57 08/26/2008/27/2023 HELPE R T-LYM PH-CD 4 neutrophils (absolute) 2.3 x10e3 /uL 1.4-7. 0 Not Available [facility] ([facility]) [address] [facility] [place], [address], 08/30/2023 22:06:57 08/26/20 23 08/27/2023 HELPE R T-LYM PH-CD 4 lymphs (absolute) 1.4 x10e3 /uL 0.7-3. 1 Not Available [facility] ([facility]) [address] [facility] [place], [address], 08/30/2023 22:06:57 08/26/20 23 08/27/2023 HELPE R T-LYM PH-CD 4 monocytes(ab solute) 0.4 x10e3 /uL 0.1-0. 9 Not Available [facility] ([facility]) [address] [facility] [place], [address], 08/30/2023 22:06:57 08/26/2008/27/2023 HELPE R T-LYM PH-CD 4 eos (absolute) 0.2 x10e3 /uL 0.0-0. 4 Not Available [facility] ([facility]) [address] [place], [address], 08/30/2023 22:06:57 08/26/20 23 08/27/2023 HELPE R T-LYM PH-CD 4 baso (absolute) 0.0 x10e3 /uL 0.0-0. 2 Not Available [facility] ([facility]) [address] [place], [address], 08/30/2023 22:06:57 08/26/20 23 08/27/2023 HELPE R T-LYM PH-CD 4 immature granulocytes 0 % notest ab. Not Available [facility] ([facility]) [address] [place], [address], 08/30/2023 22:06:57 08/26/20 23 08/27/2023 HELPE R T-LYM PH-CD 4 immature grans (abs) 0.0 x10e3 /uL 0.0-0. 1 Not Available [facility] ([facility]) [address] [place], [address], 08/30/2023 22:06:57 08/26/20 23 08/27/2023 RPR, RFX QN RPR/C ONFIR M TP RPR Reacti ve nonrea ctive abnormal Not Available [facility] ([facility]) [address] [facility], [place], [address], 08/30/2023 22:06:58 08/26/20 23 08/27/2023 RPR QN+TP ABS RPR, quant. 1:32 titer nonrea <1:1 above high normal Not Available [facility] ([facility]) [address] [facility], [place], [address], 08/30/2023 22:06:58 08/26/20 23 08/30/2023 RPR QN+TP ABS treponema pallidum antibodies Reacti ve nonrea ctive abnormal Not Available [facility] ([facility]) [address] [place], [address], 08/30/2023 22:06:58 11/25/19 24 11/26/2023 RNA, REAL TIME PCR (NON- GRAPH ) HIV-1 RNA by PCR <20 copie s/mL HIV-1 RNA detec jeannine The repor table range for this assay is 20 to 10,00 0,000 copie s HIV-1 RNA/m L. Not Available [facility] ([facility]) [address] [facility], [place], [address], 11/26/2023 21:08:19 11/25/19 24 11/26/2023 RNA, REAL TIME PCR (NON- GRAPH ) log10 HIV-1 RNA TNP log10 copy/ mL Unabl e to calcu late resul t since non-n umeri c resul t obtai lyudmila for compo nent test. Not Available [facility] ([facility]) [address] [place], [address], 11/26/2023 21:08:19 11/25/19 24 11/26/2023 INTER PRETA TION: interpretati on: Commen t Not infec jeannine with HCV unles s early or acute infec tion is suspe cted (whic h may be delay ed in an immun ocomp romis ed indiv idual ), or other evide nce exist s to indic ate HCV infec tion. Not Available [facility] ([facility]) [address] [place], [address], 11/29/2023 19:08:49 11/25/19 24 11/26/2023 HCV ANTIB ERNESTO RFX TO QUANT PCR HCV Ab Non Reacti ve nonrea ctive Not Available [facility] ([facility]) [address] [place], [address], 11/29/2023 19:08:50 11/25/19 24 11/26/2023 QUANT IFERO N-TB GOLD PLUS quantiferon incubation Incuba tion perfor med. Not Available [facility] ([facility]) [address] [facility], [place], [address], 11/29/2023 19:08:50 11/25/19 24 11/26/2023 QUANT IFERO N-TB GOLD PLUS quantiferon criteria Commen t Quant iFERO N-TB Gold Plus is a quali tativ e indir ect test for M tuber culos is infec tion (incl uding disea se) and is inten ded for use in conju nctio n with risk asses sment , radio graph y, and other medic al and diagn ostic evalu ation s. The Quant iFERO N-TB Gold Plus resul t is deter mined by subtr actin g the Nil value from eithe r TB antig en (Ag) value . The Mitog en tube serve s as a contr ol for the test. Not Available [facility] ([facility]) [address] [facility], [place], [address], 11/29/2023 19:08:50 11/25/19 24 11/29/2023 QUANT IFERO N-TB GOLD PLUS quantiferon- TB gold plus Indete rminat e abnormal Mitog en (posi tive contr ol) gave low respo nse. This may occur due to subop timal pre-a nalyt ical handl ing. Chemi lumin escen ce immun oassa y metho dolog y Not Available [facility] ([facility]) [address] [place], [address], 11/29/2023 19:08:50 11/25/19 24 11/29/2023 QUANT IFERO N-TB GOLD PLUS quantiferon TB1 Ag value 0.03 IU/mL Not Available [facility] ([facility]) [address] [place], [address], 11/29/2023 19:08:50 11/25/19 24 11/29/2023 QUANT IFERO N-TB GOLD PLUS quantiferon TB2 Ag value 0.03 IU/mL Not Available [facility] ([facility]) [address] [place], [address], 11/29/2023 19:08:50 11/25/19 24 11/29/2023 QUANT IFERO N-TB GOLD PLUS quantiferon nil value 0.03 IU/mL Not Available [facility] ([facility]) [address] [place], [address], 11/29/2023 19:08:50 11/25/19 24 11/29/2023 QUANT IFERO N-TB GOLD PLUS quantiferon mitogen value 0.03 IU/mL Not Available [facility] ([facility]) [address] [place], [address], 11/29/2023 19:08:50 11/25/19 24 11/29/2023 CT, NG, TRICH VAG BY KELLY chlamydia by KELLY Negati ve negati ve Not Available [facility] ([facility]) [address] [place], [address], 11/29/2023 19:08:51 11/25/19 24 11/29/2023 CT, NG, TRICH VAG BY KELLY gonococcus by KELLY Negati ve negati ve Not Available [facility] ([facility]) [address] [place], [address], 11/29/2023 19:08:51 11/25/19 24 11/29/2023 CT, NG, TRICH VAG BY KELLY trich vag by KELLY Negati ve negati ve Not Available [facility] ([facility]) [address] [place], [address], 11/29/2023 19:08:51 11/25/19 24 11/26/2023 LIPID PANEL cholesterol, total 117 mg/dL 100-19 9 Not Available [facility] ([facility]) [address] [place], [address], 11/29/2023 19:08:51 11/25/19 24 11/26/2023 LIPID PANEL triglyceride s 118 mg/dL 0-149 Not Available [facility] ([facility]) [address] [place], [address], 11/29/2023 19:08:51 11/25/19 24 11/26/2023 LIPID PANEL HDL cholesterol 46 mg/dL >39 Not Available [facility] ([facility]) [address] [place], [address], 11/29/2023 19:08:51 11/25/19 24 11/26/2023 LIPID PANEL VLDL cholesterol ann 21 mg/dL 5-40 Not Available [facility] ([facility]) [address] [place], [address], 11/29/2023 19:08:51 11/25/19 24 11/26/2023 LIPID PANEL LDL chol calc ([facility]) 50 mg/dL 0-99 Not Available [facility] ([facility]) [address] [place], [address], 11/29/2023 19:08:51 11/25/19 24 11/26/2023 COMP. METAB OLIC PANEL (14) glucose 91 mg/dL 70-99 Not Available [facility] ([facility]) [address] [place], [address], 11/29/2023 19:08:52 11/25/19 24 11/26/2023 COMP. METAB OLIC PANEL (14) BUN 18 mg/dL 6-20 Not Available [facility] ([facility]) [address] [place], [address], 11/29/2023 19:08:52 11/25/19 24 11/26/2023 COMP. METAB OLIC PANEL (14) creatinine 1.31 mg/dL 0.76-1 .27 above high normal Not Available [facility] ([facility]) [address] [place], [address], 11/29/2023 19:08:52 11/25/19 24 11/26/2023 COMP. METAB OLIC PANEL (14) eGFR 75 mL/mi n/1.7 3 >59 Not Available [facility] ([facility]) [address] [place], [address], 11/29/2023 19:08:52 11/25/19 24 11/26/2023 COMP. METAB OLIC PANEL (14) BUN/creatini ne ratio 14 9-20 Not Available [facility] ([facility]) [address] [place], [address], 11/29/2023 19:08:52 11/25/19 24 11/26/2023 COMP. METAB OLIC PANEL (14) sodium 136 mmol/ L 134-14 4 Not Available [facility] ([facility]) [address] [place], [address], 11/29/2023 19:08:52 11/25/19 24 11/26/2023 COMP. METAB OLIC PANEL (14) potassium 4.5 mmol/ L 3.5-5. 2 Not Available [facility] ([facility]) [address] [place], [address], 11/29/2023 19:08:52 11/25/19 24 11/26/2023 COMP. METAB OLIC PANEL (14) chloride 101 mmol/ L 96-106 Not Available [facility] ([facility]) [address] [place], [address], 11/29/2023 19:08:52 11/25/19 24 11/26/2023 COMP. METAB OLIC PANEL (14) carbon dioxide, total 21 mmol/ L 20-29 Not Available [facility] ([facility]) [address] [facility] [place], [address], 11/29/2023 19:08:52 11/25/19 24 11/26/2023 COMP. METAB OLIC PANEL (14) calcium 9.5 mg/dL 8.7-10 .2 Not Available [facility] ([facility]) [address] [facility] [place], [address], 11/29/2023 19:08:52 11/25/19 24 11/26/2023 COMP. METAB OLIC PANEL (14) protein, total 7.4 g/dL 6.0-8. 5 Not Available [facility] ([facility]) [address] [facility] [place], [address], 11/29/2023 19:08:52 11/25/19 24 11/26/2023 COMP. METAB OLIC PANEL (14) albumin 4.9 g/dL 4.1-5. 1 Not Available [facility] ([facility]) [address] [facility] [place], [address], 11/29/2023 19:08:52 11/25/19 24 11/26/2023 COMP. METAB OLIC PANEL (14) globulin, total 2.5 g/dL 1.5-4. 5 Not Available [facility] ([facility]) [address] [facility], [place], [address], 11/29/2023 19:08:52 11/25/19 24 11/26/2023 COMP. METAB OLIC PANEL (14) A/G ratio 2.0 1.2-2. 2 Not Available [facility] ([facility]) [address] [facility], [place], [address], 11/29/2023 19:08:52 11/25/19 24 11/26/2023 COMP. METAB OLIC PANEL (14) bilirubin, total 1.2 mg/dL 0.0-1. 2 Not Available [facility] ([facility]) [address] [facility] [place], [address], 11/29/2023 19:08:52 11/25/19 24 11/26/2023 COMP. METAB OLIC PANEL (14) alkaline phosphatase 62 IU/L 44-121 Not Available [facility] ([facility]) [address] [facility], [place], [address], 11/29/2023 19:08:52 11/25/19 24 11/26/2023 COMP. METAB OLIC PANEL (14) AST (SGOT) 31 IU/L 0-40 Not Available [facility] ([facility]) [address] [facility], [place], [address], 11/29/2023 19:08:52 11/25/19 24 11/26/2023 COMP. METAB OLIC PANEL (14) ALT (SGPT) 36 IU/L 0-44 Not Available [facility] ([facility]) [address] [facility], [place], [address], 11/29/2023 19:08:52 11/25/19 24 11/26/2023 MICRO SCOPI C EXAMI NATIO N WBC None seen /hpf 0-5 Not Available [facility] ([facility]) [address] [facility], [place], [address], 11/29/2023 19:08:52 11/25/19 24 11/26/2023 MICRO SCOPI C EXAMI NATIO N RBC None seen /hpf 0-2 Not Available [facility] ([facility]) [address], [place], [address], 11/29/2023 19:08:52 11/25/19 24 11/26/2023 MICRO SCOPI C EXAMI NATIO N epithelial cells (non renal) None seen /hpf 0-10 Not Available [facility] ([facility]) [address] [facility], [place], [address], 11/29/2023 19:08:52 11/25/19 24 11/26/2023 MICRO SCOPI C EXAMI NATIO N casts None seen /lpf nonese en Not Available [facility] ([facility]) [address] [facility], [place], [address], 11/29/2023 19:08:52 11/25/19 24 11/26/2023 MICRO SCOPI C EXAMI NATIO N bacteria None seen nonese en/few Not Available [facility] ([facility]) [address] [facility], [place], [address], 11/29/2023 19:08:52 11/25/19 24 11/26/2023 HELPE R T-LYM PH-CD 4 WBC 4.8 x10e3 /uL 3.4-10 .8 Not Available [facility] ([facility]) [address] [facility] [place], [address], 11/29/2023 19:08:52 11/25/19 24 11/26/2023 HELPE R T-LYM PH-CD 4 RBC 4.82 x10e6 /uL 4.14-5 .80 Not Available [facility] ([facility]) [address] [facility], [place], [address], 11/29/2023 19:08:52 11/25/19 24 11/26/2023 HELPE R T-LYM PH-CD 4 hemoglobin 15.7 g/dL 13.0-1 7.7 Not Available [facility] ([facility]) [address] [facility], [place], [address], 11/29/2023 19:08:52 11/25/19 24 11/26/2023 HELPE R T-LYM PH-CD 4 hematocrit 45.5 % 37.5-5 1.0 Not Available [facility] ([facility]) [address] [facility] [place], [address], 11/29/2023 19:08:52 11/25/19 24 11/26/2023 HELPE R T-LYM PH-CD 4 MCV 94 fL 79-97 Not Available [facility] ([facility]) [address] [facility] [place], [address], 11/29/2023 19:08:52 11/25/19 24 11/26/2023 HELPE R T-LYM PH-CD 4 MCH 32.6 pg 26.6-3 3.0 Not Available [facility] ([facility]) [address] [facility] [place], [address], 11/29/2023 19:08:52 11/25/19 24 11/26/2023 HELPE R T-LYM PH-CD 4 MCHC 34.5 g/dL 31.5-3 5.7 Not Available [facility] ([facility]) [address] [facility] [place], [address], 11/29/2023 19:08:52 11/25/19 24 11/26/2023 HELPE R T-LYM PH-CD 4 RDW 12.7 % 11.6-1 5.4 Not Available [facility] ([facility]) [address] [place], [address], 11/29/2023 19:08:52 11/25/19 24 11/26/2023 HELPE R T-LYM PH-CD 4 platelets 254 x10e3 /uL 150-45 0 Not Available [facility] ([facility]) [address] [facility] [place], [address], 11/29/2023 19:08:52 11/25/19 24 11/26/2023 HELPE R T-LYM PH-CD 4 neutrophils 55 % notest ab. Not Available [facility] ([facility]) [address] [facility] [place], [address], 11/29/2023 19:08:52 11/25/19 24 11/26/2023 HELPE R T-LYM PH-CD 4 lymphs 31 % notest ab. Not Available [facility] ([facility]) [address] [facility] [place], [address], 11/29/2023 19:08:52 11/25/19 24 11/26/2023 HELPE R T-LYM PH-CD 4 monocytes 9 % notest ab. Not Available [facility] ([facility]) [address] [facility] [place], [address], 11/29/2023 19:08:52 11/25/19 24 11/26/2023 HELPE R T-LYM PH-CD 4 eos 4 % notest ab. Not Available [facility] ([facility]) [address] [facility] [place], [address], 11/29/2023 19:08:52 11/25/19 24 11/26/2023 HELPE R T-LYM PH-CD 4 basos 1 % notest ab. Not Available [facility] ([facility]) [address] [facility] [place], [address], 11/29/2023 19:08:52 11/25/19 24 11/26/2023 HELPE R T-LYM PH-CD 4 neutrophils (absolute) 2.7 x10e3 /uL 1.4-7. 0 Not Available [facility] ([facility]) [address] [facility] [place], [address], 11/29/2023 19:08:52 11/25/19 24 11/26/2023 HELPE R T-LYM PH-CD 4 lymphs (absolute) 1.5 x10e3 /uL 0.7-3. 1 Not Available [facility] ([facility]) [address] [facility] [place], [address], 11/29/2023 19:08:52 11/25/19 24 11/26/2023 HELPE R T-LYM PH-CD 4 monocytes(ab solute) 0.4 x10e3 /uL 0.1-0. 9 Not Available [facility] ([facility]) [address] [facility] [place], [address], 11/29/2023 19:08:52 11/25/19 24 11/26/2023 HELPE R T-LYM PH-CD 4 eos (absolute) 0.2 x10e3 /uL 0.0-0. 4 Not Available [facility] ([facility]) [address] [place], [address], 11/29/2023 19:08:52 11/25/19 24 11/26/2023 HELPE R T-LYM PH-CD 4 baso (absolute) 0.0 x10e3 /uL 0.0-0. 2 Not Available [facility] ([facility]) [address] [place], [address], 11/29/2023 19:08:52 11/25/19 24 11/26/2023 HELPE R T-LYM PH-CD 4 immature granulocytes 0 % notest ab. Not Available [facility] ([facility]) [address] [place], [address], 11/29/2023 19:08:52 11/25/19 24 11/26/2023 HELPE R T-LYM PH-CD 4 immature grans (abs) 0.0 x10e3 /uL 0.0-0. 1 Not Available [facility] ([facility]) [address] [place], [address], 11/29/2023 19:08:52 11/25/19 24 11/28/2023 HELPE R T-LYM PH-CD 4 absolute cd 4 helper 614 /uL 359-15 19 Not Available [facility] ([facility]) [address] [facility] [place], [address], 11/29/2023 19:08:52 11/25/19 24 11/28/2023 HELPE R T-LYM PH-CD 4 % cd 4 pos. lymph. 40.9 % 30.8-5 8.5 Not Available [facility] ([facility]) [address] [place], [address], 11/29/2023 19:08:52 11/25/19 24 11/26/2023 DRUG PROFI LE,UR ,9 DRUGS ,BUND amphetamines , urine Negati ve NG/mL cutoff =1000 Amphe tamin e test inclu irena Amphe tamin e and Metha mphet amine . Not Available [facility] ([facility]) [address] [facility] [place], [address], 11/29/2023 19:08:53 11/25/19 24 11/26/2023 DRUG PROFI LE,UR ,9 DRUGS ,BUND barbiturate Negati ve NG/mL cutoff =300 Not Available [facility] ([facility]) [address] [place], [address], 11/29/2023 19:08:53 11/25/19 24 11/26/2023 DRUG PROFI LE,UR ,9 DRUGS ,BUND benzodiazepi leslie Negati ve NG/mL cutoff =300 Not Available [facility] ([facility]) [address] [place], [address], 11/29/2023 19:08:53 11/25/19 24 11/26/2023 DRUG PROFI LE,UR ,9 DRUGS ,BUND cannabinoid See Final Result s Not Available [facility] ([facility]) [address] [place], [address], 11/29/2023 19:08:53 11/25/19 24 11/26/2023 DRUG PROFI LE,UR ,9 DRUGS ,BUND cocaine (metab.) Negati ve NG/mL cutoff =300 Not Available [facility] ([facility]) [address] [place], [address], 11/29/2023 19:08:53 11/25/19 24 11/26/2023 DRUG PROFI LE,UR ,9 DRUGS ,BUND opiates Negati ve NG/mL cutoff =300 Opiat e test inclu irena Codei ne and Morph ine only. Not Available [facility] ([facility]) [address] [place], [address], 11/29/2023 19:08:53 11/25/19 24 11/26/2023 DRUG PROFI LE,UR ,9 DRUGS ,BUND phencyclidin e Negati ve NG/mL cutoff =25 Not Available [facility] ([facility]) [address] [place], [address], 11/29/2023 19:08:53 11/25/19 24 11/26/2023 DRUG PROFI LE,UR ,9 DRUGS ,BUND methadone screen, urine Negati ve NG/mL cutoff =300 Not Available [facility] ([facility]) [address] [place], [address], 11/29/2023 19:08:53 11/25/19 24 11/26/2023 DRUG PROFI LE,UR ,9 DRUGS ,BUND propoxyphene , urine Negati ve NG/mL cutoff =300 Not Available [facility] ([facility]) [address] [place], [address], 11/29/2023 19:08:53 11/25/19 24 11/29/2023 CANNA BINOI D CONFI RMATI ON, UR cannabinoid Positi ve cutoff =50 abnormal Not Available [facility] ([facility]) [address] [facility] [place], [address], 11/29/2023 19:08:53 11/25/19 24 11/29/2023 MARVIN LOVETTI RMATI ON, UR carboxy THC conf, MS, ur 330 NG/mL cutoff =15 Not Available [facility] ([facility]) [address] [place], [address], 11/29/2023 19:08:53 11/25/19 24 11/26/2023 URINA LYSIS , COMPL ETE specific gravity 1.023 1.005- 1.030 Not Available [facility] ([facility]) [address] [place], [address], 11/29/2023 19:08:54 11/25/19 24 11/26/2023 URINA LYSIS , COMPL ETE pH 7.5 5.0-7. 5 Not Available [facility] ([facility]) [address] [place], [address], 11/29/2023 19:08:54 11/25/19 24 11/26/2023 URINA LYSIS , COMPL ETE urine-color Yellow yellow Not Available [facility] ([facility]) [address] [place], [address], 11/29/2023 19:08:54 11/25/19 24 11/26/2023 URINA LYSIS , COMPL ETE appearance Clear clear Not Available [facility] ([facility]) [address] [place], [address], 11/29/2023 19:08:54 11/25/19 24 11/26/2023 URINA LYSIS , COMPL ETE WBC esterase Negati ve negati ve Not Available [facility] ([facility]) [address] [place], [address], 11/29/2023 19:08:54 11/25/19 24 11/26/2023 URINA LYSIS , COMPL ETE protein Negati ve negati ve/tra ce Not Available [facility] ([facility]) [address] [place], [address], 11/29/2023 19:08:54 11/25/19 24 11/26/2023 URINA LYSIS , COMPL ETE glucose Negati ve negati ve Not Available [facility] ([facility]) [address] [place], [address], 11/29/2023 19:08:54 11/25/19 24 11/26/2023 URINA LYSIS , COMPL ETE ketones Negati ve negati ve Not Available [facility] ([facility]) [address] [place], [address], 11/29/2023 19:08:54 11/25/19 24 11/26/2023 URINA LYSIS , COMPL ETE occult blood Negati ve negati ve Not Available [facility] ([facility]) [address] [place], [address], 11/29/2023 19:08:54 11/25/19 24 11/26/2023 URINA LYSIS , COMPL ETE bilirubin Negati ve negati ve Not Available [facility] ([facility]) [address] [place], [address], 11/29/2023 19:08:54 11/25/19 24 11/26/2023 URINA LYSIS , COMPL ETE urobilinogen ,semi-qn 0.2 mg/dL 0.2-1. 0 Not Available [facility] ([facility]) [address] [place], [address], 11/29/2023 19:08:54 11/25/19 24 11/26/2023 URINA LYSIS , COMPL ETE nitrite, urine Negati ve negati ve Not Available [facility] ([facility]) [address] [place], [address], 11/29/2023 19:08:54 11/25/19 24 11/26/2023 URINA LYSIS , COMPL ETE microscopic examination Commen t Micro scopi c follo ws if indic ated. Not Available [facility] ([facility]) [address] [facility] [place], [address], 11/29/2023 19:08:54 11/25/19 24 11/26/2023 URINA LYSIS , COMPL ETE microscopic examination See below: Micro scopi c was indic ated and was perfo rmed. Not Available [facility] ([facility]) [address] [facility] [place], [address], 11/29/2023 19:08:54 11/25/19 24 11/26/2023 RPR, RFX QN RPR/C ONFIR M TP RPR Reacti ve nonrea ctive abnormal Not Available [facility] ([facility]) [address] [facility] [place], [address], 11/29/2023 19:08:54 11/25/19 24 11/26/2023 RPR QN+TP ABS RPR, quant. 1:32 titer nonrea <1:1 above high normal Not Available [facility] ([facility]) [address] [facility] [place], [address], 11/29/2023 19:08:55 11/25/19 24 11/28/2023 RPR QN+TP ABS treponema pallidum antibodies Reacti ve nonrea ctive abnormal Not Available [facility] ([facility]) [address] [place], [address], 11/29/2023 19:08:55 05/11/20 24 05/12/2024 RNA, REAL TIME PCR (NON- GRAPH ) HIV-1 RNA by PCR <20 copie s/mL HIV-1 RNA not detec jeannine The repor table range for this assay is 20 to 10,00 0,000 copie s HIV-1 RNA/m L. Not Available [facility] ([facility]) [address] [place], [address], 05/12/2024 21:07:16 05/11/20 24 05/12/2024 RNA, REAL TIME PCR (NON- GRAPH ) log10 HIV-1 RNA TNP log10 copy/ mL Unabl e to calcu late resul t since non-n umeri c resul t obtai lyudmila for compo nent test. Not Available [facility] ([facility]) [address] [place], [address], 05/12/2024 21:07:16 05/11/20 24 05/14/2024 CT, NG, TRICH VAG BY KELLY chlamydia by KELLY NEGATI VE negati ve Not Available [facility] ([facility]) [address] [place], [address], 05/14/2024 21:07:38 05/11/20 24 05/14/2024 CT, NG, TRICH VAG BY KELLY gonococcus by KELLY NEGATI VE negati ve Not Available [facility] ([facility]) [address] [place], [address], 05/14/2024 21:07:38 05/11/20 24 05/14/2024 CT, NG, TRICH VAG BY KELLY trich vag by KELLY NEGATI VE negati ve Not Available [facility] ([facility]) [address] [place], [address], 05/14/2024 21:07:38 05/11/20 24 05/12/2024 COMP. METAB OLIC PANEL (14) glucose 97 mg/dL 70-99 Not Available [facility] ([facility]) [address] [place], [address], 05/14/2024 21:07:39 05/11/20 24 05/12/2024 COMP. METAB OLIC PANEL (14) BUN 15 mg/dL 6-20 Not Available [facility] ([facility]) [address] [place], [address], 05/14/2024 21:07:39 05/11/20 24 05/12/2024 COMP. METAB OLIC PANEL (14) creatinine 1.31 mg/dL 0.76-1 .27 above high normal Not Available [facility] ([facility]) [address] [facility] [place], [address], 05/14/2024 21:07:39 05/11/20 24 05/12/2024 COMP. METAB OLIC PANEL (14) eGFR 75 mL/mi n/1.7 3 >59 Not Available [facility] ([facility]) [address] [facility] [place], [address], 05/14/2024 21:07:39 05/11/20 24 05/12/2024 COMP. METAB OLIC PANEL (14) BUN/creatini ne ratio 11 9-20 Not Available [facility] ([facility]) [address] [facility] [place], [address], 05/14/2024 21:07:39 05/11/20 24 05/12/2024 COMP. METAB OLIC PANEL (14) sodium 139 mmol/ L 134-14 4 Not Available [facility] ([facility]) [address] [facility] [place], [address], 05/14/2024 21:07:39 05/11/20 24 05/12/2024 COMP. METAB OLIC PANEL (14) potassium 4.3 mmol/ L 3.5-5. 2 Not Available [facility] ([facility]) [address] [facility] [place], [address], 05/14/2024 21:07:39 05/11/20 24 05/12/2024 COMP. METAB OLIC PANEL (14) chloride 102 mmol/ L 96-106 Not Available [facility] ([facility]) [address] [facility] [place], [address], 05/14/2024 21:07:39 05/11/20 24 05/12/2024 COMP. METAB OLIC PANEL (14) carbon dioxide, total 20 mmol/ L 20-29 Not Available [facility] ([facility]) [address] [facility] [place], [address], 05/14/2024 21:07:39 05/11/20 24 05/12/2024 COMP. METAB OLIC PANEL (14) calcium 9.5 mg/dL 8.7-10 .2 Not Available [facility] ([facility]) [address] [facility] [place], [address], 05/14/2024 21:07:39 05/11/20 24 05/12/2024 COMP. METAB OLIC PANEL (14) protein, total 6.9 g/dL 6.0-8. 5 Not Available [facility] ([facility]) [address] [facility] [place], [address], 05/14/2024 21:07:39 05/11/20 24 05/12/2024 COMP. METAB OLIC PANEL (14) albumin 4.5 g/dL 4.1-5. 1 Not Available [facility] ([facility]) [address] [facility] [place], [address], 05/14/2024 21:07:39 05/11/20 24 05/12/2024 COMP. METAB OLIC PANEL (14) globulin, total 2.4 g/dL 1.5-4. 5 Not Available [facility] ([facility]) [address] [facility], [place], [address], 05/14/2024 21:07:39 05/11/20 24 05/12/2024 COMP. METAB OLIC PANEL (14) bilirubin, total 0.3 mg/dL 0.0-1. 2 Not Available [facility] ([facility]) [address] [facility], [place], [address], 05/14/2024 21:07:39 05/11/20 24 05/12/2024 COMP. METAB OLIC PANEL (14) alkaline phosphatase 55 IU/L 44-121 Not Available [facility] ([facility]) [address] [facility] [place], [address], 05/14/2024 21:07:39 05/11/20 24 05/12/2024 COMP. METAB OLIC PANEL (14) AST (SGOT) 36 IU/L 0-40 Not Available [facility] ([facility]) [address] [facility] [place], [address], 05/14/2024 21:07:39 05/11/20 24 05/12/2024 COMP. METAB OLIC PANEL (14) ALT (SGPT) 37 IU/L 0-44 Not Available [facility] ([facility]) [address] [facility], [place], [address], 05/14/2024 21:07:39 05/11/20 24 05/12/2024 HELPE R T-LYM PH-CD 4 WBC 5.9 x10e3 /uL 3.4-10 .8 Not Available [facility] ([facility]) [address] [facility] [place], [address], 05/14/2024 21:07:40 05/11/20 24 05/12/2024 HELPE R T-LYM PH-CD 4 RBC 4.36 x10e6 /uL 4.14-5 .80 Not Available [facility] ([facility]) [address] [facility] [place], [address], 05/14/2024 21:07:40 05/11/20 24 05/12/2024 HELPE R T-LYM PH-CD 4 hemoglobin 14.5 g/dL 13.0-1 7.7 Not Available [facility] ([facility]) [address] [facility] [place], [address], 05/14/2024 21:07:40 05/11/20 24 05/12/2024 HELPE R T-LYM PH-CD 4 hematocrit 43.0 % 37.5-5 1.0 Not Available [facility] ([facility]) [address] [facility] [place], [address], 05/14/2024 21:07:40 05/11/20 24 05/12/2024 HELPE R T-LYM PH-CD 4 MCV 99 fL 79-97 above high normal Not Available [facility] ([facility]) [address] [facility], [place], [address], 05/14/2024 21:07:40 05/11/20 24 05/12/2024 HELPE R T-LYM PH-CD 4 MCH 33.3 pg 26.6-3 3.0 above high normal Not Available [facility] ([facility]) [address] [facility] [place], [address], 05/14/2024 21:07:40 05/11/20 24 05/12/2024 HELPE R T-LYM PH-CD 4 MCHC 33.7 g/dL 31.5-3 5.7 Not Available [facility] ([facility]) [address] [place], [address], 05/14/2024 21:07:40 05/11/20 24 05/12/2024 HELPE R T-LYM PH-CD 4 RDW 12.5 % 11.6-1 5.4 Not Available [facility] ([facility]) [address] [place], [address], 05/14/2024 21:07:40 05/11/20 24 05/12/2024 HELPE R T-LYM PH-CD 4 platelets 264 x10e3 /uL 150-45 0 Not Available [facility] ([facility]) [address] [place], [address], 05/14/2024 21:07:40 05/11/20 24 05/12/2024 HELPE R T-LYM PH-CD 4 neutrophils 54 % notest ab. Not Available [facility] ([facility]) [address] [facility] [place], [address], 05/14/2024 21:07:40 05/11/20 24 05/12/2024 HELPE R T-LYM PH-CD 4 lymphs 29 % notest ab. Not Available [facility] ([facility]) [address] [facility] [place], [address], 05/14/2024 21:07:40 05/11/20 24 05/12/2024 HELPE R T-LYM PH-CD 4 monocytes 10 % notest ab. Not Available [facility] ([facility]) [address] [facility] [place], [address], 05/14/2024 21:07:40 05/11/20 24 05/12/2024 HELPE R T-LYM PH-CD 4 eos 6 % notest ab. Not Available [facility] ([facility]) [address] [facility], [place], [address], 05/14/2024 21:07:40 05/11/20 24 05/12/2024 HELPE R T-LYM PH-CD 4 basos 1 % notest ab. Not Available [facility] ([facility]) [address] [facility] [place], [address], 05/14/2024 21:07:40 05/11/20 24 05/12/2024 HELPE R T-LYM PH-CD 4 neutrophils (absolute) 3.2 x10e3 /uL 1.4-7. 0 Not Available [facility] ([facility]) [address] [facility], [place], [address], 05/14/2024 21:07:40 05/11/20 24 05/12/2024 HELPE R T-LYM PH-CD 4 lymphs (absolute) 1.7 x10e3 /uL 0.7-3. 1 Not Available [facility] ([facility]) [address] [facility] [place], [address], 05/14/2024 21:07:40 05/11/20 24 05/12/2024 HELPE R T-LYM PH-CD 4 monocytes(ab solute) 0.6 x10e3 /uL 0.1-0. 9 Not Available [facility] ([facility]) [address] [facility], [place], [address], 05/14/2024 21:07:40 05/11/20 24 05/12/2024 HELPE R T-LYM PH-CD 4 eos (absolute) 0.3 x10e3 /uL 0.0-0. 4 Not Available [facility] ([facility]) [address] [facility] [place], [address], 05/14/2024 21:07:40 05/11/20 24 05/12/2024 HELPE R T-LYM PH-CD 4 baso (absolute) 0.1 x10e3 /uL 0.0-0. 2 Not Available [facility] ([facility]) [address] [facility] [place], [address], 05/14/2024 21:07:40 05/11/20 24 05/12/2024 HELPE R T-LYM PH-CD 4 immature granulocytes 0 % notest ab. Not Available [facility] ([facility]) [address] [facility] [place], [address], 05/14/2024 21:07:40 05/11/20 24 05/12/2024 HELPE R T-LYM PH-CD 4 immature grans (abs) 0.0 x10e3 /uL 0.0-0. 1 Not Available [facility] ([facility]) [address] [place], [address], 05/14/2024 21:07:40 05/11/20 24 05/14/2024 HELPE R T-LYM PH-CD 4 absolute cd 4 helper 779 /uL 359-15 19 Not Available [facility] ([facility]) [address] [place], [address], 05/14/2024 21:07:40 05/11/20 24 05/14/2024 HELPE R T-LYM PH-CD 4 % cd 4 pos. lymph. 45.8 % 30.8-5 8.5 Not Available [facility] ([facility]) [address] [facility] [place], [address], 05/14/2024 21:07:40 05/11/20 24 05/12/2024 RPR, RFX QN RPR/C ONFIR M TP RPR REACTI VE nonrea ctive abnormal Not Available [facility] ([facility]) [address] [place], [address], 05/14/2024 21:07:40 05/11/20 24 05/12/2024 RPR QN+TP ABS RPR, quant. 1:16 titer nonrea <1:1 above high normal Not Available [facility] ([facility]) [address] [place], [address], 05/14/2024 21:07:41 05/11/20 24 05/12/2024 RPR QN+TP ABS interpretati on: Commen t Syphi lis: RPR with Refle x to RPR Titer and Trepo nemal Antib odies , Tradi gisell l Scree destiny and Diagn osis Algor ithm ----- ----- ----- ----- ----- ----- ----- ----- ----- ----- ----- ----- Trepo nemal RPR RPR, Qn Ab Final Inter preta tion ----- --- ----- ---- ----- ----- ----- ----- ----- ----- ---- Non N/A N/A No labor atory evide nce React quincy of syphi lis. Retes t in 2-4 weeks if recen t expos ure us suspe cted. ----- --- ----- ---- ----- ----- ----- ----- ----- ----- ---- React quincy >/=1: 1 Non Nontr epone mal antib odies React quincy detec jeannine. Syphi lis unlik beti; biolo gical false posit quincy possi ble. Retes t in 2-4 weeks if recen t expos ure is suspe cted. ----- --- ----- ---- ----- ----- ----- ----- ----- ----- ---- React quincy >/=1: 1 React quincy Trepo nemal and nontr epone mal antib odies detec jeannine. Consi stent with past or curre nt (pote ntial early ) syphi lis. Not Available [facility] ([facility]) [address] [place], [address], 05/14/2024 21:07:41 05/11/20 24 05/14/2024 RPR QN+TP ABS treponema pallidum antibodies Reacti ve nonrea ctive abnormal Not Available [facility] ([facility]) [address] [place], [address], 05/14/2024 21:07:41 Result Notes None recorded. Problems No Known Problems Medical Equipment None Reported. Allergies No known drug allergies Medications Name Sig Start Date Stop Date Status Note LastModified by Organization Details LastModified Time Prescript ion - Prior Authoriza tion Request 07/24 completed Not Available Not Available Not Available atorvasta tin 20 mg tablet TAKE ONE TABLET BY MOUTH DAILY WITH DINNER 05/10 completed Not Available Not Available Not Available Bicillin L-A 2,400,000 unit/4 mL intramusc ular syringe Inject 2.4 million units every week by intramus cular route as directed for 7 days. 11/24 completed Not Available Not Available Not Available Tivicay 50 mg tablet TAKE ONE BY MOUTH DAILY WITH FOOD 11/24 completed Not Available Not Available Not Available Prezcobix 800 mg-150 mg tablet TAKE ONE TABLET BY MOUTH DAILY WITH FOOD 05/11 completed Not Available Not Available Not Available Biktarvy 50 mg-200 mg-25 mg tablet TAKE ONE BY MOUTH DAILY 01/19 completed Elevated serum creat. Switch to DRV/c + DTG Not Available Not Available Not Available Dovato 50 mg-300 mg tablet Take 1 tablet every day by oral route as directed for 90 days. 2023 active Not Available Not Available Not Avai lable Vitals Date Recorded Body height Body mass index (BMI) Body weight Oxygen saturation Oxygen saturation in Arterial blood by Pulse oximetry Heart rate Respiratory rate Body temperature Systolic blood pressure Diastolic blood pressure Provider Name and Address Organization Details Last Updated DateTime 3 172.72 cm 27.6 kg/m2 86692.0 2 g 99 % 99 % 50 /min 18 /min 97.8 [degF] 117 mm[Hg] 76 mm[Hg] Manda Jack [place] - [facility] 3 10:16:06 Date Recorded Body height Body mass index (BMI) Body weight Respiratory rate Body temperature Oxygen saturation Oxygen saturation in Arterial blood by Pulse oximetry Heart rate Systolic blood pressure Diastolic blood pressure Provider Name and Address Organization Details Last Updated DateTime 3 172.72 cm 27.1 kg/m2 43925.1 4 g 18 /min 97.8 [degF] 99 % 99 % 62 /min 122 mm[Hg] 80 mm[Hg] Manda Jack MA [place] - [facility] 3 11:38:48 Date Recorded Body height Body mass index (BMI) Body weight Body temperature Respiratory rate Oxygen saturation Oxygen saturation in Arterial blood by Pulse oximetry Heart rate Systolic blood pressure Diastolic blood pressure Provider Name and Address Organization Details Last Updated DateTime 4 172.72 cm 29 kg/m2 30358.1 4 g 97.8 [degF] 18 /min 99 % 99 % 56 /min 113 mm[Hg] 77 mm[Hg] Manda Jack MA [facility] 4 10:28:18 Date Recorded Body height Body mass index (BMI) Body weight Oxygen saturation Oxygen saturation in Arterial blood by Pulse oximetry Heart rate Respiratory rate Body temperature Systolic blood pressure Diastolic blood pressure Provider Name and Address Organization Details Last Updated DateTime 4 172.72 cm 30.6 kg/m2 37665.7 7 g 99 % 99 % 76 /min 18 /min 98.2 [degF] 130 mm[Hg] 78 mm[Hg] Manda Jack [place] [facility] 4 12:24:47 Social History Question Answer Notes LastModified by Organizat ion Details LastModified Time Tobacco Smoking Status Never Smoker Fouziaalondra berkowitz, [facility] 05/29/2020 14:23:23 Date Of 1st HIV Medical Visit 05/29/2020 Information not available 06/02/2020 [facility] Slide Cap On Charges 5608.20 Information not available 05/13/2023 HIV Dx [facility] No Informatio n not available 06/02/2020 HIV Risk Counseling #1 05/29/2020 Information not available 05/29/2020 Depression Screen/Follow Up Plan 05/29/2020 Information not available 05/29/2020 [facility] Visit Frequency 4 Months Information not available 04/22/2022 New Patient Type At Intake Newly Diagnosed (12 Mos) Information not available 06/02/2020 [facility] URN [id number] Information no t available 06/13/2020 [facility] End Date 11/02/2020 Information not available 06/13/2020 [facility] Status Active Information no t available 06/13/2020 Current Gender Identity Male Information not available 05/29/2020 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 05/11/2024 Information not available 05/11/2024 Do You Use Protection During Sex? Always Information not available 05/29/2020 Are You Sexually Active? Yes Information not available 05/29/2020 Has Tobacco Cessation Counseling Been Provided? Yes Information not available 05/11/2024 On What Date Was Tobacco Cessation Counseling Provided? 05/11/2024 Information not available 05/11/2024 Sex: Male Functional Status None recorded. Mental Status None recorded. Family History Relationship Description Onset Age of this Age Resolved Age Notes LastModified by Organization Details LastModified Time Father Hypertensive disorder [email or web address] Not available 2019 14:24:02 Medical History No medical history recorded. Immunizations Vaccine Type Date Status Note Provider Name and Address Organization Details Recorded Time COVID-19, mRNA, LNP-S, PF, 30 mcg/0.3 mL dose 1 completed Kulwinder Lou PA-C Attn: [address] [place], [address], [place] - [facility] 06/19/2021 14:35:09 COVID-19, mRNA, LNP-S, PF, 30 mcg/0.3 mL dose 1 completed Kulwinder Lou PA-C Attn: [address] [facility], [place], [address], [place] [facility] 06/19/2021 14:35:20 Influenza, high-dose, quadrivalent , PF 4 cancelled patient objection NATHANIEL FRANCO NP Attn: [address]ing[address] [facility], [place], [address], [place] [facility] 05/11/2024 13:32:30 Past Encounters Encounter ID Performer Location Encounter Start Date Encounter Closed Date Diagnosis/Indication Diagnosis SNOMED-CT Code Diagnosis ICD10 Code Diagnosis Note [id number] Kulwinder Lou PA-C [facility] () [address] [place] [address] 05/29/2020 14:22:15 05/29/2020 14:58:05 Human immunodeficiency virus infection 79251704 B20 29 y/o CM Dx HIV+ 05/20/2020 at the [facility] Dept. Pt sought testing after his female partner tested positive for syphilis ( sti workup).Pr ior testing was in ~ 2014.Risk Factors: +PWID/IVDU , heterosexu alMrStew Phelan is HAART naive. Mr. Phelan also tested positive for syphilis and is scheduled to begin Tx on 06/03/2020 at a doctor's office in [place]. Denied neuro symptoms or rash. Denied a syphilis Dx in the past. Denied a h/o MTB/LTBI, Hep B, Hep C. He reported feeling well today and denied changes in vision, frequent or severe headaches, fevers, night sweats, excessive fatigue, anorexia, LAD, odynophagi a, cough, diarrhea or rash.Also, denied depressive symptoms-- I have a good support system. 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 Mr. Phelan wishes to establish HIV care with [facility] . Plan:Will complete a blood draw tomorrow at the [facility] location. Please use condoms. Will follow-up on 06/19/2020 for a phone visit. Syphilis [id number] A53.9 Was Dx on 05/20/2020 and scheduled to begin Tx on 06/03/2020. History of intravenous drug abuse 2401582567 0893492 F19.11 Was using opiatesWil l be 5 years clean August 2020.He is not on opiate substituti on therapy. [id number] Kulwinder Lou PA-C [facility] () [address] [place] [address] 06/18/2020 14:33:03 06/19/2020 12:48:59 Human immunodeficiency virus infection [id number] B20 Phone Visit (follow-up ) May 2020: CD4+: 289 (29%) VL: 178 K copiesGeno type (baseline) : I135T, Y188L, V245E This is a scheduled follow-up appointmen t for Mr. Phelan. He completed his initial HIV blood draw last month and we will be discussing those results today. He reported feeling well today and denied changes in vision, frequent or severe headaches, fevers, night sweats, excessive fatigue, anorexia, LAD, odynophagi a, cough, diarrhea or rash. Also, denied depressive symptoms-- I have a good support system. 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 Stated today that he is ready to initiate HAART. Plan:Initi ating HAART: ERx Biktarvy to the [facility] in [place], [place].Will mail a [employer] co-pay card to pts home at his request. Please use condoms. Pt will return to the [facility] in 8 weeks to repeat a T-cell and RNA. RTC for follow-up late-Decem 2019. Syphilis [id number] A53.9 May 2020RPR: 1:512 TpAb: Pos Has received 2 Bicillin injections and is scheduled for his 3rd on 06/24/2020 . History of intravenous drug abuse 6392215401 1165757 F19.11 Was using opiatesWil l be 5 years clean August 2020.He is not on opiate substituti on therapy. Serum crea tinine above reference range [id number] R79.May:Creat : 1.40 mg/dL Pt had worked ( all day ) prior to the blood draw and believes that he was dehydrated . Plan: Will monitor. [id number] Kulwinder Lou PA-C [facility] () [address] [place] [address] 09/02/2020 10:57:03 09/02/2020 14:20:59 Human immunodeficiency virus infection [id number] B20 Phone Visit (follow-up ) May 2020: CD4+: 289 (29%) VL: 178 K copiesGeno type (baseline) : I135T, Y188L, V245E August 2020: CD4+: 509 (34%) VL: 150 copies This is a scheduled follow-up appointmen t for Mr. Phelan. He reported no missed doses of ART since starting this past June. He is tolerating the Biktarvy without side-effec ts. He reported feeling well today and denied changes in vision, frequent or severe headaches, fevers, night sweats, excessive fatigue, anorexia, LAD, odynophagi a, cough, diarrhea or rash. 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 Plan:Will return to the [facility] [place] location later this week to repeat labs. Discussed the influenza vaccine; he will consider. Continue Biktarvy. Please use condoms. Will follow up January 2021. Syphilis [id number] A53.9 May 2020RPR: 1:512 TpAb: Pos Has received 2 Bicillin injections and is scheduled for his 3rd on 06/24/2020 . Serum crea tinine above reference range [id number] R79.May: Creat: 1.40 mg/dL Pt works as a fast food team member. Plan: Will monitor. History of intravenous drug abuse 3986888810 [id number] F19.11 Was using opiatesWil l be 5 years clean August 2020.He is not on opiate substituti on therapy. [id number] Kulwinder Lou PA-C [facility] ([facility]) [address] [place] [address] 01/08/2021 09:58:17 01/09/2021 15:29:32 Human immunodeficiency virus infection [id number] B20 Phone Visit (follow-up ) August 2020: CD4+: 497 (36%) VL: 30 copies/mL This is a scheduled follow-up appointmen t for Mr. Phelan. He reported no missed doses of ART over the past five days and is tolerating the Biktarvy without side-effec ts. He reported feeling well today and denied changes in vision, frequent or severe headaches, fevers, night sweats, excessive fatigue, anorexia, LAD, odynophagi a, cough, diarrhea or rash. 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 Is sexually active with his and they are using condoms. She is not taking PrEP. Plan: Will return to the [facility] location later this week to repeat labs. Encouraged pt to discuss PrEP with his ; stated that he plans to do so. Continue Biktarvy. Please use condoms. Will follow-up June 2021. *Addendum 01/19/2021* Elevated serum creat, so switching to an NRTI-spari ng regimen. +Y188L, so Juluca is not an option. D/C Biktarvy New: DRV/c + DTG Will recheck labs in 6 weeks. ROSINA Dubois Serum crea tinine above reference range [id number] R79.May: Creat: 1.40 mg/dL August 2020: 1.69 mg/dL Pt works as a fast food team member. He is taking a TAF-based HIV regimen. Plan: Will monitor. *Addendum 01/16/2021* January 2021: Creat: 1.88 mg/dL Discussed result with pt by phone this am. Suggested that we switch away from Biktarvy to an NRTI-spari ng regimen (suggested Malgorzata) and refer to Nephrology . He refused both but stated that he would think it over and reach out on Tuesday via [email or web address] Patient Portal to discuss again. ROSINA Dubois Syphilis [id number] A53.14 May 2020 RPR: 1:512 TpAb: Pos Has received 2 Bicillin injections and is scheduled for his 3rd on 06/24/2020 . Plan: Will monitor History of intravenous drug abuse 7419418860 [id number] F19.11 Was using opiates 5 years clean August 2020. He is not on opiate substituti on therapy. Vaccine de clined by patient [id number] 02 Z28.21 [address] where he can get the covid-19 vaccine. Stated that he does not plan to get it. [id number] Kulwinder Lou PA-C [facility] () [address] [place] [address] 06/19/2021 10:47:00 06/22/2021 12:14:19 Human immunodeficiency virus infection [id number] B20 Phone Visit (follow-up ) March 2021: CD4+: 581 (34%) VL: < 20 copies/mLA rchived mutations: +Y188L This is a scheduled follow-up appointmen t for Mr. Phelan. This past January, his regimen was switched from Biktarvy to D/c + DTG because of an elevated creat. He reported no missed doses of ART over the past five days and is tolerating the Biktarvy without side-effec ts. He reported feeling well today and denied changes in vision, frequent or severe headaches, fevers, night sweats, excessive fatigue, anorexia, LAD, odynophagi a, cough, diarrhea or rash. 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 Is sexually active with his and they are using condoms. She is taking PrEP.Of note, he received two doses of the [employer] [place] covid-19 vaccine (May 2021). Plan:Will return to the [facility] location next week for labs.Demetria nue D/c + DTG Please use condoms.Wi ll follow-up December 2021. Serum crea tinine above reference range [id number] R79.May: Creat: 1.40 mg/dL August 2020: 1.69 mg/dL Pt works as a fast food team member.Was switched to an NRTI-spari ng regimen January 2021. March 2021: Creat: 1.37 mg/dLUA: Neg for protein Plan:Will continue to monitor and refer to Nephrology , if necessary (and pt agreeable) . Syphilis [id number] A53.14 May 2020 RPR: 1:512 TpAb: Pos Has received 2 Bicillin injections and is scheduled for his 3rd on 06/24/2020 .January 2021: 1:128July 2020: 1:64 Plan:Will continue to monitor. History of intravenous drug abuse [id number] F19.11 Was using opiates 6 years clean August 2021. He is not on opiate substituti on therapy. [id number] Kulwinder Lou PA-C [facility] () [address] [place] [address] 11/20/2021 09:27:07 11/21/2021 17:50:52 Human immunodeficiency virus infection [id number] B20 Phone Visit (follow-up ) June 2021: CD4+: 734 (41%) VL: 40 copies/mLA rchived mutations: +[id number] This is a scheduled follow-up appointmen t for Mr. Phelan. He reported no missed doses of ART over the past five days and is tolerating his regimen without side-effec ts. He reported feeling well today and denied changes in vision, frequent or severe headaches, fevers, night sweats, excessive fatigue, anorexia, LAD, odynophagi a, cough, diarrhea or rash. 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 Is sexually active with his and they are using condoms. She is taking PrEP.Of note, he received two doses of the Pfizer covid-19 vaccine (May 2021). He has not yet received the covid-19 booster vaccine. Plan:Will return to the [facility] location next week for labs.Demetria rodriguez D/c + DTArin Discussed pt getting the covid-19 booster vaccine; he will consider. Please wear an N95 mask when out in public. Please use condoms.Wi ll follow-up May 2022. Serum crea tinine above reference range [id number] R79.May: Creat: 1.40 mg/dL August 2020: 1.69 mg/dL Pt works as a fast food team member.Was switched to an NRTI-spari ng regimen January 2021. March 2021: Creat: 1.37 mg/dLUA: Neg for protein June 2021: 1.54 mg/dL Plan:Will continue to monitor and refer to Nephrology , if necessary (and pt agreeable) . Syphilis [id number] A53.14 May 2020 RPR: 1:512 TpAb: Pos Has received 2 Bicillin injections and is scheduled for his 3rd on 06/24/2020 .January 2021: 1:128July 2020: 1:64 Plan:Will continue to monitor. History of intravenous drug abuse [id number] 0904956 F19.11 Was using opiates 6 years clean August 2021. He is not on opiate substituti on therapy. [id number] NATHANIEL FRANCO NP [facility] () [address] [place] [address] 05/28/2022 10:21:45 06/07/2022 10:16:47 Human immunodeficiency virus infection 02881384 B20 Risk Counseling : Today's instructio ns / counseling includes use of condoms with all sex acts.Treat ment Adherence Counseling : Today's instructio ns / counseling includes continuati on ART as prescribed , and keeping medical appointmen ts.Most recent labs 11/25/21 CD4= 683 VL=<20 [id number] NATHANIEL FRANCO NP [facility] () [address] [place] [address] 11/26/2022 10:00:56 11/29/2022 10:10:23 Human immunodeficiency virus infection 86477386 B20 Risk Counseling : Today's instructio ns / counseling includes use of condoms with all sex acts.Treat ment Adherence Counseling : Today's instructio ns / counseling includes continuati on ART as prescribed , and keeping medical appointmen ts.Most recent labs 05/28/22 CD4= 702 VL=<20 Body mass index 25-29 - overweight 802264147 Z68.28 Depression screening 171 802383 Z13.31 negative [id number] Dominique Carrillo RN [facility] [address] [place] [address] 9 01/07/2023 15:14:48 02/04/2023 03:47:06 History of syphilis [id number] 310776 Z86.19 [id number] Dominique Carrillo RN [facility] [address] [place] [address] 01/14/2023 15:09:21 01/24/2023 13:37:18 Syphilis 50833877 A53.9 [id number] Dominique Carrillo RN [facility] [address] [place] [address] 01/21/2023 15:14:06 02/04/2023 03:47:07 Syphilis 46496936 A53.9 [id number] NATHANIEL FRANCO NP [facility] () [address] [place] [address] 05/13/2023 09:54:26 06/05/2023 11:07:28 Human immunodeficiency virus infection 78695053 B20 Risk Counseling : Today's instructio ns / counseling includes use of condoms with all sex acts.Treat ment Adherence Counseling : Today's instructio ns / counseling includes continuati on ART as prescribed , and keeping medical appointmen ts.Most recent labs 11/30/22 CD4= 777 VL=<20 Body mass index 25-29 - overweight 876449006 Z68.27 Overweight 648907639 E66 .3 [id number] NATHANIEL FRANCO NP [facility] () [address] [place] [address] 08/26/2023 11:17:13 08/30/2023 14:56:24 Human immunodeficiency virus infection 40737642 B20 Risk Counseling : Today's instructio ns / counseling includes use of condoms with all sex acts.Treat ment Adherence Counseling : Today's instructio ns / counseling includes continuati on ART as prescribed , and keeping medical appointmen ts.Most recent labs 06/22/23 CD4= 864 VL=<20 Body mass index 25-29 - overweight 724789290 Z68.27 Overweight 050286408 E66 .3 [id number] NATHANIEL FRANCO NP [facility] () [address] [address] 11/25/2023 10:18:24 11/28/2023 14:07:35 Human immunodeficiency virus infection 98981331 B20 Risk Counseling : Today's instructio ns / counseling includes use of condoms with all sex acts.Treat ment Adherence Counseling : Today's instructio ns / counseling includes continuati on ART as prescribed , and keeping medical appointmen ts.Most recent labs 08/26/23 CD4= 644 VL=<20 Body mass index 25-29 - overweight 638124072 Z68.27 Overweight 863715964 E66 .3 Tolerant non-smoker 8773 9003 Z87.239 [id number] NATHANIEL FRANCO NP [facility] () [address] [address] 05/11/2024 12:11:28 05/18/2024 12:40:32 Human immunodeficiency virus infection 36390265 B20 Risk Counseling : Today's instructio ns / counseling includes use of condoms with all sex acts.Treat ment Adherence Counseling : Today's instructio ns / counseling includes continuati on ART as prescribed , and keeping medical appointmen ts.Most recent labs 11/25/23 CD4= 614 VL=<20 Body mass index 30+ - obesity 826961783 Z68.30 Obesity 201045583 E66.8 Tolerant non-smoker 8773 9003 Z87.891 Active or passive immunization 129396296 Z23 Health Concerns Section Related Observation LastModified by Organization Detai ls LastModified Time None Recorded Concern Status LastModified by Organization Details LastModified Time None Recorded Advance Directives Directive None Recorded Payers Encounter Date Sequence Insurance Name Policy Number Policy Garza Covered Member ID Garza Member ID Guarantor Name 01/21/2023 1 [employer] [id number] Donald Phelan [id number] Donald Phelan 05/13/2023 SLIDING FEE SCHEDULE - DISCOUNT Donald Phelan 08/26/2023 1 [employer] [id number] Donald Phelan [id number] Donald Phelan 11/25/2023 1 [place] [id number] Donald Phelan [id number] Donald Phelan 05/11/2024 1 [employer] [id number] Donald Phelan [id number] Donald Phelan Notes Date Note Type Note Provider Name and Address Organization Details Recorded Time 05/13/2023 text/html 32 y/o w male present today for a f/u. Pt admits that he is taking his prezcobix and Tivicay and has been undetectable. He is and his is on PREP. He states that he has not missed any doses of his ART. We discussed changing his regimen. He admits that when he was on Biktarvy he had some renal dysfunction and states that he was also using a lot of creatinine at the time. He is feeling well today and denied changes in vision, frequent or severe headaches, fevers, night sweats, excessive fatigue, anorexia, LAD, odynophagia, cough, diarrhea or rash. NATHANIEL FRANCO NP Attn: [address] [place], [address], [facility] 05/13/2023 17:37:13 08/26/2023 text/html 32 y/o w male present today for a HIV f/u. Pt was recently started on Dovato in May. He is and his is on PREP. He states that he has not missed any doses of his ART. He is feeling well today and denied changes in vision, frequent or severe headaches, fevers, night sweats, excessive fatigue, anorexia, LAD, odynophagia, cough, diarrhea or rash. Pt states that they have access to food daily, has access to transportation, and is employed or has a regular source of income. NATHANIEL FRANCO NP Attn: [address] [facility] [place], [address], [facility] 08/26/2023 16:03:01 11/25/2023 text/html 33 y/o w male present today for a HIV f/u. Pt was recently started on Dovato in May. He is and his is on PREP. He states that he has not missed any doses of his ART. He is feeling well today and denied changes in vision, frequent or severe headaches, fevers, night sweats, excessive fatigue, anorexia, LAD, odynophagia, cough, diarrhea or rash. Pt states that they have access to food daily, has access to transportation, and is employed or has a regular source of income. NATHANIEL FRANCO NP Attn: [address] [facility], [place], [address], [facility] 11/25/2023 17:49:04 05/11/2024 text/html 33 y/o w male present today for a HIV f/u. Pt was started on Dovato 1 yr ago and has remained undetectable. He is and his is on PREP. He states that he has not missed any doses of his ART. He is feeling well today and denied changes in vision, frequent or severe headaches, fevers, night sweats, excessive fatigue, anorexia, LAD, odynophagia, cough, diarrhea or rash. Pt states that they have access to food daily, has access to transportation, and is employed or has a regular source of income. NATHANIEL FRANCO NP Attn: [address] [facility], [place], [address], [facility] 05/11/2024 13:32:32
[2024-10-16 08:44] LABS: EDCOVIDSCREEN Negative (Negative); EDINFLUASCREEN Negative (Negative); EDINFLUBSCREEN Negative (Negative)
== END 2024-10-16 08:55 | disposition home or self-care (01) ==
PROVIDERS: Emergency Provider Nurse Practitioner
DX: J06.9 Acute upper respiratory infection, unspecified (principal); Z20.822 Contact with and (suspected) exposure to COVID-19
CPT/HCPCS: 87426; 87804; 99213; G0463